=== PATIENT | male | born 1965 | race Caucasian/White ===

== ENCOUNTER 2021-01-16 13:51 | Outpatient (CLI) | payer OTHER | END 2021-01-16 13:52 | disposition home or self-care (01) | LOC: BICULT 13:51 | PROVIDERS: ATTEND Nurse Practitioner Family | DX: R10.32 Left lower quadrant pain (principal) | CPT/HCPCS: 76870; 93976 ==

== ENCOUNTER 2024-06-11 09:21 | Outpatient (CLI) | payer OTHER | END 2024-06-11 09:22 | disposition home or self-care (01) | LOC: BICRAD 09:21 | PROVIDERS: ATTEND Internal Medicine | DX: Z02.71 Encounter for disability determination (principal); M47.816 Spondylosis without myelopathy or radiculopathy, lumbar region | CPT/HCPCS: 72100 ==

== ENCOUNTER 2025-03-17 08:56 | Inpatient (IN) | payer OTHER ==
[2025-03-17] MEDS ORDERED: Cefepime 2 GM VIAL ONE (09:18)
[2025-03-17 09:27] LABS: #Basophils Less than 0.03 10x3/uL (0.0-0.2); #Eosinophils Less than 0.03 10x3/uL (0.0-0.7); #Monocytes 0.27 10x3/uL (0.11-0.59); #Neutrophils 3.57 10x3/uL (1.40-6.50); %Basophils 0.4 % (0.0-1.0); %Eosinophils 0.0 % (0.0-10.0); %Lymphocytes 15.0 % (21.0-51.0); %Monocytes 5.9 % (0.0-10.0); %Neutrophils 77.8 % (42.0-75.0); Hematocrit 29.9 % (42.0-52.0); Hemoglobin 9.9 g/dL (14.0-18.0); Mean Corpuscular Hemoglobin 37.6 pg (27.0-31.0); Mean Corpuscular Volume 113.7 fL (78.0-98.0); Platelet Count 81 10x3/uL (130-400); Red Blood Cell (RBC) Count 2.63 mill/uL (4.70-6.10); White Blood Cell (WBC) Count 4.59 10x3/uL (4.8-10.8)
[2025-03-17 09:35] LABS: INR-International Normal Ratio 1.2; PTT 30.9 sec (22.9-36.1); Prothrombin Time 15.4 sec (12.0-14.7)
[2025-03-17 09:43] LABS: Anion Gap 32 mmol/L (10-20); BUN (Urea Nitrogen) 33 mg/dL (8.4-25.7); Calc. Creatinine Clearance 0 mL/min (70-130); Carbon Dioxide 11 mmol/L (23-31); Chloride 103 mmol/L (98-107); Potassium 3.8 mmol/L (3.5-5.1); Sodium 142 mmol/L (136-145)
[2025-03-17 09:44] LABS: ALT (SGPT) 14 U/L (Less than 45); AST (SGOT) 52 U/L (11-34); Albumin 3.7 g/dL (3.1-4.5); Alkaline Phosphatase 56 U/L (40-110); Bilirubin, Total 1.8 mg/dL (0.3-1.2); Calcium 8.5 mg/dL (7.8-10.44); Globulin 4.2 g/dL (2.4-3.5); Glucose 92 mg/dL (80-115); Magnesium 1.4 mg/dL (1.6-2.6)
[2025-03-17 09:46] LABS: Troponin I 0.012 ng/mL (< 0.028)
[2025-03-17 09:48] LABS: Anisocytosis SLIGHT = 6-15 cells HPF (0-5); Macrocytosis MODERATE=16-30 cells HPF (0-5); Platelet Adequacy Comment Platelets Decreased; Poikilocytosis SLIGHT = 6-15 cells HPF (0-5)
[2025-03-17] MEDS ORDERED: Magnesium 2 GM/50 ML BAG (IN WATER) ONE (09:58)
[2025-03-17] MEDS ORDERED: Multivit, Therapeutic 1 TAB ONE (10:23)
[2025-03-17] MEDS ORDERED: Folic Acid 1 MG TAB ONE (10:23)
[2025-03-17 10:49] LABS: Acetaminophen Less than 10 mcg/mL (Less than 10); Salicylate Less than 8.0 mg/dL (Less than 8.0)
[2025-03-17] MEDS ORDERED: Iopamidol-370 76% 500 ML MDV (1 ML CHARGE) ONE (11:19)
[2025-03-17] MEDS ORDERED: Senokot S 8.6-50 MG TAB PO PRN (12:25)
[2025-03-17 12:39] LABS: Analyzer IN Cardio ER; Base Excess (BEa) -19.0 mEq/L (-2.0 to +3.0); Calcium, Ionized (arterial) 1.18 mmol/L (1.12-1.30); Hematocrit-ABG 29 % (42.0-52.0); Hemoglobin (Hb) 9.7 g/dL (14.0-18.0); O2 Tension (PaO2), arterial 78.2 mmHg (> 80.0); Potassium - ABG Lab 4.22 mmol/L (3.70-5.30)
[2025-03-17] MEDS ORDERED: Electrolyte Replacement Protocol 1 EACH FS SCH (12:45)
[2025-03-17 12:50] LABS: Troponin I 0.033 ng/mL (< 0.028)
[2025-03-17] MEDS: Etomidate 40 MG (20 mL) VIAL ONE (13:51)
[2025-03-17] MEDS ORDERED: Propofol BOLUS 1,000 MG/100 ML VIAL IV PRN (14:15)
[2025-03-17] MEDS ORDERED: Fentanyl BOLUS 100 ML IVPB PRN (14:15)
[2025-03-17 14:51] LABS: Troponin I 0.152 ng/mL (< 0.028)
[2025-03-17 15:05] LABS: Anion Gap 28 mmol/L (10-20); BUN (Urea Nitrogen) 30 mg/dL (8.4-25.7); Calc. Creatinine Clearance 0 mL/min (70-130); Calcium 7.8 mg/dL (7.8-10.44); Carbon Dioxide 9 mmol/L (23-31); Chloride 108 mmol/L (98-107); Glucose 92 mg/dL (80-115); Potassium 4.1 mmol/L (3.5-5.1); Sodium 141 mmol/L (136-145)
[2025-03-17 15:32] LABS: Base Excess (BEa) -17.6 mEq/L (-2.0 to +3.0); CO2 Tension 26.9 mmHg (35.0-45.0); Calcium, Ionized (arterial) 1.17 mmol/L (1.12-1.30); Hematocrit-ABG 27 % (42.0-52.0); Hemoglobin (Hb) 9.2 g/dL (14.0-18.0); O2 Tension (PaO2), arterial 89.8 mmHg (> 80.0); Potassium - ABG Lab 3.74 mmol/L (3.70-5.30)
[2025-03-17 15:38] LABS: ALV-art Gradient 161.775 mmHg (0-20); Actual Bicarbonate (HCO3a) 9.5 mEq/L (22-28); Puncture Site Right Radial artery; pH, Arterial 7.166 (7.35-7.45)
[2025-03-17] MEDS: Ventilator Sedation Protocol 1 EACH FS ONE (15:52)
[2025-03-17] MEDS: Potassium Chloride 20 MEQ in Premix 1 BAG IVPB SCH (15:59)
[2025-03-17] MEDS: Vancomycin 1.5 GM / NS 500ML VIAL-2-BAG IVPB SCH (17:13)
[2025-03-17] MEDS: Electrolyte Replacement Protocol 1 EACH FS ONE (17:29)
[2025-03-17 19:39] LABS: Anion Gap 27 mmol/L (10-20); BUN (Urea Nitrogen) 30 mg/dL (8.4-25.7); Calc. Creatinine Clearance 69 mL/min (70-130); Calcium 7.6 mg/dL (7.8-10.44); Carbon Dioxide 11 mmol/L (23-31); Chloride 108 mmol/L (98-107); Glucose 98 mg/dL (80-115); Potassium 4.2 mmol/L (3.5-5.1); Sodium 142 mmol/L (136-145)
[2025-03-17] MEDS: Famotidine/PF 20 mg/2ml Vial SLOW IVP SCH (20:31)
[2025-03-17 23:18] LABS: Bacteria/HPF None Seen HPF (None Seen); CAUTI Indications for Culture Dysuria,urgency,freq; Glucose, Urine (Dipstick) Normal (Negative); Leukocyte Negative Leu/uL (Negative); Protein, Urine (Dipstick) 50 mg/dL (Neg-Trace); RBC/HPF 0-3 HPF (0-3); Specific Gravity, Urine Greater than 1.050 (1.002-1.036); WBC/HPF 0-3 HPF (0-3)
[2025-03-17 23:19] LABS: Urine Culture Reflex No No
[2025-03-17] MEDS: Vancomycin 1 GM in Premix 1 BAG IVPB SCH (23:31)
[2025-03-18 03:44] LABS: Vancomycin, Random 88.7 ug/mL (See Comment)
[2025-03-18 03:49] LABS: ALT (SGPT) 8 U/L (Less than 45); AST (SGOT) 30 U/L (11-34); Albumin 2.5 g/dL (3.1-4.5); Alkaline Phosphatase 34 U/L (40-110); Anion Gap 27 mmol/L (10-20); BUN (Urea Nitrogen) 28 mg/dL (8.4-25.7); Bilirubin, Direct 0.9 mg/dL (0.1-0.3); Bilirubin, Total 1.4 mg/dL (0.3-1.2); Calc. Creatinine Clearance 62 mL/min (70-130); Calcium 7.0 mg/dL (7.8-10.44); Carbon Dioxide 17 mmol/L (23-31); Chloride 98 mmol/L (98-107); Glucose 207 mg/dL (80-115); Potassium 3.8 mmol/L (3.5-5.1); Sodium 138 mmol/L (136-145)
[2025-03-18 04:32] LABS: Hematocrit 22.9 % (42.0-52.0); Hemoglobin 7.6 g/dL (14.0-18.0); Mean Corpuscular Hemoglobin 38.8 pg (27.0-31.0); Mean Corpuscular Volume 116.8 fL (78.0-98.0); Platelet Count 59 10x3/uL (130-400); Red Blood Cell (RBC) Count 1.96 mill/uL (4.70-6.10); White Blood Cell (WBC) Count 1.77 10x3/uL (4.8-10.8)
[2025-03-18 05:04] LABS: Macrocytosis SLIGHT = 6-15 cells HPF (0-5); Platelet Adequacy Comment Platelets Decreased; Smudge Cells 7.4 %
[2025-03-18 05:08] LABS: Reflex for Review?? YES
[2025-03-18 06:34] LABS: Actual Bicarbonate (HCO3a) 17.0 mEq/L (22-28); Base Excess (BEa) -7.9 mEq/L (-2.0 to +3.0); CO2 Tension 32.3 mmHg (35.0-45.0); Calcium, Ionized (arterial) 1.08 mmol/L (1.12-1.30); Hematocrit-ABG 25 % (42.0-52.0); Hemoglobin (Hb) 8.5 g/dL (14.0-18.0); O2 Tension (PaO2), arterial 72.1 mmHg (> 80.0); Potassium - ABG Lab 3.91 mmol/L (3.70-5.30); pH, Arterial 7.340 (7.35-7.45)
[2025-03-18 06:36] LABS: ALV-art Gradient 172.725 mmHg (0-20); Puncture Site Right Brachial art
[2025-03-18] MEDS ORDERED: Enoxaparin 40 MG (0.4 mL) SYRINGE SC SCH (09:00)
[2025-03-18] MEDS: Sodium Phosphate 40 MMOL in Sodium Chloride 0.9% 250 ML 250 ML IVPB SCH (09:18)
[2025-03-18] MEDS: Folic Acid 1 MG TAB PO SCH (09:18)
[2025-03-18] MEDS: Multivit, Therapeutic 1 TAB PO SCH (09:18)
[2025-03-18 10:34] LABS: Vancomycin, Random 24.0 ug/mL (See Comment)
[2025-03-18 12:58] LABS: pH, Arterial 7.145 (7.35-7.45)
[2025-03-18 12:59] LABS: Actual Bicarbonate (HCO3a) 8.3 mEq/L (22-28); CO2 Tension 24.7 mmHg (35.0-45.0)
[2025-03-18] MEDS: Vancomycin HCl 1.25 GM in Sodium Chloride 0.9% 250 ML 250 ML IVPB SCH (20:33)
[2025-03-19 04:11] LABS: Hematocrit 23.5 % (42.0-52.0); Hemoglobin 8.0 g/dL (14.0-18.0); Mean Corpuscular Hemoglobin 37.9 pg (27.0-31.0); Mean Corpuscular Volume 111.4 fL (78.0-98.0); Platelet Count 53 10x3/uL (130-400); Red Blood Cell (RBC) Count 2.11 mill/uL (4.70-6.10); White Blood Cell (WBC) Count 2.99 10x3/uL (4.8-10.8)
[2025-03-19 04:23] LABS: Magnesium 1.6 mg/dL (1.6-2.6)
[2025-03-19 04:32] LABS: ALT (SGPT) 8 U/L (Less than 45); AST (SGOT) 23 U/L (11-34); Albumin 2.6 g/dL (3.1-4.5); Alkaline Phosphatase 35 U/L (40-110); Anion Gap 20 mmol/L (10-20); BUN (Urea Nitrogen) 30 mg/dL (8.4-25.7); Bilirubin, Direct 0.8 mg/dL (0.1-0.3); Bilirubin, Total 1.2 mg/dL (0.3-1.2); Calc. Creatinine Clearance 77 mL/min (70-130); Calcium 7.8 mg/dL (7.8-10.44); Carbon Dioxide 18 mmol/L (23-31); Chloride 105 mmol/L (98-107); Glucose 218 mg/dL (80-115); Potassium 3.4 mmol/L (3.5-5.1); Sodium 140 mmol/L (136-145)
[2025-03-19 04:40] LABS: Anisocytosis SLIGHT = 6-15 cells HPF (0-5); Macrocytosis SLIGHT = 6-15 cells HPF (0-5); Nucleated RBC (Manual Ct) 4 % (0); Platelet Adequacy Comment Platelets Decreased; Polychromasia SLIGHT = 2-3 cells HPF (0-2); Smudge Cells 0.9 %
[2025-03-19 04:41] LABS: Vancomycin, Random 34.6 ug/mL (See Comment)
[2025-03-19] MEDS: Magnesium 2 GM/50 ML(in water) 2 GM in Premix 1 BAG IVPB SCH (06:14)
[2025-03-19] MEDS: Potassium Chloride 20 MEQ in Premix 1 BAG IVPB SCH (06:15)
[2025-03-19] MEDS ORDERED: Glucagon 1 MG/ML KIT IM PRN (09:17)
[2025-03-19] MEDS ORDERED: Dextrose 50% Abboject 50 ML SYRINGE SLOW IVP PRN (09:17)
[2025-03-19 13:51] LABS: Hematocrit 22.3 % (42.0-52.0); Hemoglobin 7.3 g/dL (14.0-18.0)
[2025-03-20 04:10] LABS: #Basophils Less than 0.03 10x3/uL (0.0-0.2); #Eosinophils Less than 0.03 10x3/uL (0.0-0.7); #Monocytes 0.27 10x3/uL (0.11-0.59); #Neutrophils 3.04 10x3/uL (1.40-6.50); %Basophils 0.0 % (0.0-1.0); %Eosinophils 0.0 % (0.0-10.0); %Lymphocytes 7.3 % (21.0-51.0); %Monocytes 7.3 % (0.0-10.0); %Neutrophils 82.7 % (42.0-75.0); Hematocrit 26.0 % (42.0-52.0); Hemoglobin 8.6 g/dL (14.0-18.0); Mean Corpuscular Hemoglobin 37.4 pg (27.0-31.0); Mean Corpuscular Volume 113.0 fL (78.0-98.0); Platelet Count 65 10x3/uL (130-400); Red Blood Cell (RBC) Count 2.30 mill/uL (4.70-6.10); White Blood Cell (WBC) Count 3.68 10x3/uL (4.8-10.8)
[2025-03-20 04:14] LABS: ALT (SGPT) 8 U/L (Less than 45); AST (SGOT) 22 U/L (11-34); Albumin 2.5 g/dL (3.1-4.5); Alkaline Phosphatase 40 U/L (40-110); Anion Gap 16 mmol/L (10-20); BUN (Urea Nitrogen) 27 mg/dL (8.4-25.7); Bilirubin, Direct 0.6 mg/dL (0.1-0.3); Bilirubin, Total 1.0 mg/dL (0.3-1.2); Calc. Creatinine Clearance 89 mL/min (70-130); Calcium 8.2 mg/dL (7.8-10.44); Carbon Dioxide 21 mmol/L (23-31); Chloride 106 mmol/L (98-107); Glucose 136 mg/dL (80-115); Magnesium 2.3 mg/dL (1.6-2.6); Potassium 4.3 mmol/L (3.5-5.1); Sodium 139 mmol/L (136-145)
[2025-03-20] MEDS: Folic Acid 0.5 MG in Admixture Fee 1 EACH SC SCH (10:11)
[2025-03-21 04:05] LABS: Hematocrit 27.3 % (42.0-52.0); Hemoglobin 8.8 g/dL (14.0-18.0); Mean Corpuscular Hemoglobin 37.4 pg (27.0-31.0); Mean Corpuscular Volume 116.2 fL (78.0-98.0); Platelet Count 71 10x3/uL (130-400); Red Blood Cell (RBC) Count 2.35 mill/uL (4.70-6.10); White Blood Cell (WBC) Count 3.06 10x3/uL (4.8-10.8)
[2025-03-21 04:21] LABS: ALT (SGPT) 11 U/L (Less than 45); AST (SGOT) 49 U/L (11-34); Albumin 2.2 g/dL (3.1-4.5); Alkaline Phosphatase 42 U/L (40-110); Anion Gap 13 mmol/L (10-20); BUN (Urea Nitrogen) 20 mg/dL (8.4-25.7); Bilirubin, Direct 0.8 mg/dL (0.1-0.3); Bilirubin, Total 1.2 mg/dL (0.3-1.2); Calc. Creatinine Clearance 96 mL/min (70-130); Calcium 7.8 mg/dL (7.8-10.44); Carbon Dioxide 25 mmol/L (23-31); Chloride 107 mmol/L (98-107); Glucose 115 mg/dL (80-115); Magnesium 1.8 mg/dL (1.6-2.6); Potassium 3.5 mmol/L (3.5-5.1); Sodium 141 mmol/L (136-145)
[2025-03-21 04:30] LABS: Macrocytosis SLIGHT = 6-15 cells HPF (0-5); Nucleated RBC (Manual Ct) 1 % (0); Platelet Adequacy Comment Platelets Decreased; Polychromasia SLIGHT = 2-3 cells HPF (0-2)
[2025-03-21] MEDS: Thiamine 100 MG TAB PO SCH (08:11)
[2025-03-21] MEDS: Magnesium 2 GM/50 ML(in water) 2 GM in Premix 1 BAG IVPB SCH (08:12)
[2025-03-21] MEDS: Potassium Chloride 20 MEQ in Premix 1 BAG IVPB SCH (08:39)
[2025-03-21] MEDS: Multivits W-Minerals Liquid 15 ML UDCUP PER TUBE SCH (08:39)
[2025-03-21] MEDS ORDERED: PROPOFOL 40 ML ONE (12:18)
[2025-03-21] MEDS ORDERED: Rocuronium Bromide 10 MG/ML (10ML VIAL) ONE (13:00)
[2025-03-21] MEDS: Pantoprazole 40 MG VIAL IVP SCH (13:29)
[2025-03-21] MEDS: Multivitamins, Adult 10 ML, Folic Acid 1 MG, Thiamine HCl 100 MG in Dextrose 5 %-0.45 %... IV SCH (15:18)
[2025-03-21 19:15] LABS: Potassium 3.9 mmol/L (3.5-5.1)
[2025-03-22 04:35] LABS: ALT (SGPT) 7 U/L (Less than 45); AST (SGOT) 25 U/L (11-34); Albumin 2.0 g/dL (3.1-4.5); Alkaline Phosphatase 44 U/L (40-110); Bilirubin, Direct 0.6 mg/dL (0.1-0.3); Bilirubin, Total 0.9 mg/dL (0.3-1.2)
[2025-03-22 07:41] LABS: Actual Bicarbonate (HCO3a) 27.2 mEq/L (22-28); Base Excess (BEa) 4.1 mEq/L (-2.0 to +3.0); CO2 Tension 34.9 mmHg (35.0-45.0); Calcium, Ionized (arterial) 1.09 mmol/L (1.12-1.30); Hematocrit-ABG 28 % (42.0-52.0); Hemoglobin (Hb) 9.4 g/dL (14.0-18.0); O2 Tension (PaO2), arterial 82.7 mmHg (> 80.0); Potassium - ABG Lab 3.83 mmol/L (3.70-5.30); pH, Arterial 7.509 (7.35-7.45)
[2025-03-22 07:43] LABS: ALV-art Gradient 51.925 mmHg (0-20); Puncture Site Left Brachial artery
[2025-03-22 09:22] LABS: ALT (SGPT) 7 U/L (Less than 45); AST (SGOT) 30 U/L (11-34); Albumin 2.2 g/dL (3.1-4.5); Alkaline Phosphatase 49 U/L (40-110); Anion Gap 14 mmol/L (10-20); BUN (Urea Nitrogen) 11 mg/dL (8.4-25.7); Bilirubin, Total 1.2 mg/dL (0.3-1.2); Calc. Creatinine Clearance 109 mL/min (70-130); Calcium 7.9 mg/dL (7.8-10.44); Carbon Dioxide 24 mmol/L (23-31); Chloride 104 mmol/L (98-107); Globulin 3.7 g/dL (2.4-3.5); Glucose 98 mg/dL (80-115); Magnesium 1.6 mg/dL (1.6-2.6); Potassium 3.9 mmol/L (3.5-5.1); Sodium 138 mmol/L (136-145)
[2025-03-22] MEDS: Magnesium 2 GM/50 ML(in water) 2 GM in Premix 1 BAG IVPB SCH (09:39)
[2025-03-22 09:46] LABS: Hematocrit 26.8 % (42.0-52.0); Hemoglobin 8.9 g/dL (14.0-18.0); Mean Corpuscular Hemoglobin 38.2 pg (27.0-31.0); Mean Corpuscular Volume 115.0 fL (78.0-98.0); Platelet Count 65 10x3/uL (130-400); Red Blood Cell (RBC) Count 2.33 mill/uL (4.70-6.10); White Blood Cell (WBC) Count 4.16 10x3/uL (4.8-10.8)
[2025-03-22 10:11] LABS: Anisocytosis SLIGHT = 6-15 cells HPF (0-5); Macrocytosis SLIGHT = 6-15 cells HPF (0-5); Platelet Adequacy Comment Platelets Decreased; Polychromasia SLIGHT = 2-3 cells HPF (0-2); Smudge Cells 1.0 %; Toxic Granulation SLIGHT
[2025-03-22] MEDS: D5W-AA 4.25% with LYTES 1,000 ML IV SCH (17:49)
[2025-03-22] MEDS: Furosemide 20 MG (2 mL) VIAL SLOW IVP SCH (22:54)
[2025-03-22] MEDS: Glycopyrrolate 0.4 MG/ 2 ML VIAL SLOW IVP SCH (22:54)
[2025-03-22] MEDS: Scopolamine 1 mg/72 hour Patch TD SCH (23:20)
[2025-03-23 05:19] LABS: Hematocrit 20.3 % (42.0-52.0); Hemoglobin 6.9 g/dL (14.0-18.0); Mean Corpuscular Hemoglobin 37.7 pg (27.0-31.0); Mean Corpuscular Volume 110.9 fL (78.0-98.0); Platelet Count 69 10x3/uL (130-400); Red Blood Cell (RBC) Count 1.83 mill/uL (4.70-6.10); White Blood Cell (WBC) Count 3.72 10x3/uL (4.8-10.8)
[2025-03-23 05:24] LABS: ALT (SGPT) Less than 7 U/L (Less than 45); AST (SGOT) 37 U/L (11-34); Albumin 2.1 g/dL (3.1-4.5); Alkaline Phosphatase 39 U/L (40-110); Anion Gap 11 mmol/L (10-20); BUN (Urea Nitrogen) 14 mg/dL (8.4-25.7); Bilirubin, Total 0.8 mg/dL (0.3-1.2); Calc. Creatinine Clearance 0 mL/min (70-130); Calcium 7.7 mg/dL (7.8-10.44); Carbon Dioxide 27 mmol/L (23-31); Chloride 99 mmol/L (98-107); Globulin 3.2 g/dL (2.4-3.5); Glucose 133 mg/dL (80-115); Magnesium 1.6 mg/dL (1.6-2.6); Potassium 3.4 mmol/L (3.5-5.1); Sodium 134 mmol/L (136-145)
[2025-03-23] MEDS: Magnesium 2 GM/50 ML(in water) 2 GM in Premix 1 BAG IVPB SCH (06:33)
[2025-03-23 06:34] LABS: Anisocytosis SLIGHT = 6-15 cells HPF (0-5); Macrocytosis SLIGHT = 6-15 cells HPF (0-5); Platelet Adequacy Comment Platelets Decreased; Polychromasia SLIGHT = 2-3 cells HPF (0-2); Smudge Cells 6.9 %; Stomatocytes SLIGHT = 2-5 cells HPF (0-1)
[2025-03-23] MEDS: Potassium Chloride 20 MEQ in Premix 1 BAG IVPB SCH (10:06)
[2025-03-24] MEDS: Furosemide 20 MG (2 mL) VIAL SLOW IVP SCH (04:43)
[2025-03-24 05:08] LABS: Hematocrit 22.3 % (42.0-52.0); Hemoglobin 7.6 g/dL (14.0-18.0); Mean Corpuscular Hemoglobin 36.5 pg (27.0-31.0); Mean Corpuscular Volume 107.2 fL (78.0-98.0); Platelet Count 77 10x3/uL (130-400); Red Blood Cell (RBC) Count 2.08 mill/uL (4.70-6.10); White Blood Cell (WBC) Count 7.72 10x3/uL (4.8-10.8)
[2025-03-24 05:21] LABS: Anion Gap 12 mmol/L (10-20); BUN (Urea Nitrogen) 24 mg/dL (8.4-25.7); Calc. Creatinine Clearance 113 mL/min (70-130); Calcium 7.8 mg/dL (7.8-10.44); Carbon Dioxide 26 mmol/L (23-31); Chloride 101 mmol/L (98-107); Glucose 117 mg/dL (80-115); Potassium 4.2 mmol/L (3.5-5.1); Sodium 135 mmol/L (136-145)
[2025-03-24 05:43] LABS: Hypersegmented Neutrophil SLIGHT (None Seen); Macrocytosis SLIGHT = 6-15 cells HPF (0-5); Platelet Adequacy Comment Platelets Decreased; Polychromasia SLIGHT = 2-3 cells HPF (0-2); Smudge Cells 4.0 %; Toxic Granulation SLIGHT
[2025-03-25 12:51] LABS: Hematocrit 21.9 % (42.0-52.0); Hemoglobin 7.3 g/dL (14.0-18.0); Mean Corpuscular Hemoglobin 36.5 pg (27.0-31.0); Mean Corpuscular Volume 109.5 fL (78.0-98.0); Platelet Count 100 10x3/uL (130-400); Red Blood Cell (RBC) Count 2.00 mill/uL (4.70-6.10); White Blood Cell (WBC) Count 16.39 10x3/uL (4.8-10.8)
[2025-03-25 13:15] LABS: ALT (SGPT) Less than 7 U/L (Less than 45); AST (SGOT) 25 U/L (11-34); Albumin 1.5 g/dL (3.1-4.5); Alkaline Phosphatase 37 U/L (40-110); Anion Gap 18 mmol/L (10-20); BUN (Urea Nitrogen) 25 mg/dL (8.4-25.7); Bilirubin, Total 0.6 mg/dL (0.3-1.2); Calc. Creatinine Clearance 129 mL/min (70-130); Carbon Dioxide 18 mmol/L (23-31); Chloride 111 mmol/L (98-107); Globulin 2.9 g/dL (2.4-3.5); Glucose 70 mg/dL (80-115); Potassium 3.2 mmol/L (3.5-5.1); Sodium 144 mmol/L (136-145)
[2025-03-25 13:25] LABS: Anisocytosis SLIGHT = 6-15 cells HPF (0-5); Burr Cells SLIGHT = 2-5 cells HPF (0-1); Macrocytosis SLIGHT = 6-15 cells HPF (0-5); Platelet Adequacy Comment Platelets Decreased; Polychromasia SLIGHT = 2-3 cells HPF (0-2)
[2025-03-25 13:28] LABS: Calcium 6.2 mg/dL (7.8-10.44)
[2025-03-25] MEDS: Potassium Chloride 20 MEQ in Premix 1 BAG IVPB SCH (15:10)
[2025-03-26 05:07] LABS: Hematocrit 23.7 % (42.0-52.0); Hemoglobin 7.9 g/dL (14.0-18.0); Mean Corpuscular Hemoglobin 35.3 pg (27.0-31.0); Mean Corpuscular Volume 105.8 fL (78.0-98.0); Platelet Count 213 10x3/uL (130-400); Red Blood Cell (RBC) Count 2.24 mill/uL (4.70-6.10); White Blood Cell (WBC) Count 28.81 10x3/uL (4.8-10.8)
[2025-03-26 05:24] LABS: ALT (SGPT) 11 U/L (Less than 45); AST (SGOT) 44 U/L (11-34); Albumin 2.4 g/dL (3.1-4.5); Alkaline Phosphatase 71 U/L (40-110); Anion Gap 17 mmol/L (10-20); BUN (Urea Nitrogen) 35 mg/dL (8.4-25.7); Bilirubin, Total 1.2 mg/dL (0.3-1.2); Calc. Creatinine Clearance 99 mL/min (70-130); Calcium 8.5 mg/dL (7.8-10.44); Carbon Dioxide 21 mmol/L (23-31); Chloride 100 mmol/L (98-107); Globulin 4.0 g/dL (2.4-3.5); Glucose 93 mg/dL (80-115); Potassium 5.0 mmol/L (3.5-5.1); Sodium 133 mmol/L (136-145)
[2025-03-26 05:37] LABS: Macrocytosis SLIGHT = 6-15 cells HPF (0-5); Platelet Adequacy Comment Platelets Normal; Polychromasia MODERATE = 3-4 cells HPF (0-2); Toxic Granulation SLIGHT
[2025-03-27 03:49] LABS: #Basophils 0.05 10x3/uL (0.0-0.2); #Eosinophils Less than 0.03 10x3/uL (0.0-0.7); #Monocytes 1.13 10x3/uL (0.11-0.59); #Neutrophils 15.56 10x3/uL (1.40-6.50); %Basophils 0.3 % (0.0-1.0); %Eosinophils 0.1 % (0.0-10.0); %Lymphocytes 3.6 % (21.0-51.0); %Monocytes 6.4 % (0.0-10.0); %Neutrophils 88.7 % (42.0-75.0); Hematocrit 20.9 % (42.0-52.0); Hemoglobin 6.8 g/dL (14.0-18.0); Mean Corpuscular Hemoglobin 35.1 pg (27.0-31.0); Mean Corpuscular Volume 107.7 fL (78.0-98.0); Platelet Count 262 10x3/uL (130-400); Red Blood Cell (RBC) Count 1.94 mill/uL (4.70-6.10); White Blood Cell (WBC) Count 17.54 10x3/uL (4.8-10.8)
[2025-03-27 04:07] LABS: Anion Gap 14 mmol/L (10-20); BUN (Urea Nitrogen) 38 mg/dL (8.4-25.7); Calc. Creatinine Clearance 99 mL/min (70-130); Calcium 8.1 mg/dL (7.8-10.44); Carbon Dioxide 22 mmol/L (23-31); Chloride 101 mmol/L (98-107); Glucose 113 mg/dL (80-115); Potassium 4.5 mmol/L (3.5-5.1); Sodium 132 mmol/L (136-145)
[2025-03-28 05:46] LABS: #Basophils Less than 0.03 10x3/uL (0.0-0.2); #Eosinophils Less than 0.03 10x3/uL (0.0-0.7); #Monocytes 0.51 10x3/uL (0.11-0.59); #Neutrophils 12.61 10x3/uL (1.40-6.50); %Basophils 0.1 % (0.0-1.0); %Eosinophils 0.0 % (0.0-10.0); %Lymphocytes 2.1 % (21.0-51.0); %Monocytes 3.8 % (0.0-10.0); %Neutrophils 93.0 % (42.0-75.0); Hematocrit 26.2 % (42.0-52.0); Hemoglobin 8.6 g/dL (14.0-18.0); Mean Corpuscular Hemoglobin 34.4 pg (27.0-31.0); Mean Corpuscular Volume 104.8 fL (78.0-98.0); Platelet Count 339 10x3/uL (130-400); Red Blood Cell (RBC) Count 2.50 mill/uL (4.70-6.10); White Blood Cell (WBC) Count 13.56 10x3/uL (4.8-10.8)
[2025-03-28 06:02] LABS: Anion Gap 16 mmol/L (10-20); BUN (Urea Nitrogen) 39 mg/dL (8.4-25.7); Calc. Creatinine Clearance 110 mL/min (70-130); Calcium 8.7 mg/dL (7.8-10.44); Carbon Dioxide 19 mmol/L (23-31); Chloride 102 mmol/L (98-107); Glucose 155 mg/dL (80-115); Potassium 5.1 mmol/L (3.5-5.1); Sodium 132 mmol/L (136-145)
[2025-03-28 10:18] LABS: Actual Bicarbonate (HCO3v) 21.4 mEq/L (22-28); Base Excess -2.7 mEq/L (-2.0 to +3.0); Calcium, Ionized (venous) 1.11 mmol/L (1.16-1.32); Chloride (VBG) 102 mmol/L (98-106); Hematocrit-VBG 30 % (42.0-52.0); Hemoglobin (Hb) 10.2 g/dL (13.1-17.2); Potassium (VBG) 4.64 mmol/L (3.70-5.30); Sodium 132 mmol/L (133-146)
[2025-03-29 06:20] LABS: #Basophils Less than 0.03 10x3/uL (0.0-0.2); #Eosinophils Less than 0.03 10x3/uL (0.0-0.7); #Monocytes 0.52 10x3/uL (0.11-0.59); #Neutrophils 9.31 10x3/uL (1.40-6.50); %Basophils 0.1 % (0.0-1.0); %Eosinophils 0.0 % (0.0-10.0); %Lymphocytes 3.2 % (21.0-51.0); %Monocytes 5.1 % (0.0-10.0); %Neutrophils 91.0 % (42.0-75.0); Hematocrit 27.4 % (42.0-52.0); Hemoglobin 8.7 g/dL (14.0-18.0); Mean Corpuscular Hemoglobin 33.6 pg (27.0-31.0); Mean Corpuscular Volume 105.8 fL (78.0-98.0); Platelet Count 408 10x3/uL (130-400); Red Blood Cell (RBC) Count 2.59 mill/uL (4.70-6.10); White Blood Cell (WBC) Count 10.23 10x3/uL (4.8-10.8)
[2025-03-29 06:36] LABS: Anion Gap 18 mmol/L (10-20); BUN (Urea Nitrogen) 42 mg/dL (8.4-25.7); Calc. Creatinine Clearance 123 mL/min (70-130); Calcium 8.6 mg/dL (7.8-10.44); Carbon Dioxide 18 mmol/L (23-31); Chloride 104 mmol/L (98-107); Glucose 163 mg/dL (80-115); Potassium 4.7 mmol/L (3.5-5.1); Sodium 135 mmol/L (136-145)
[2025-03-30 05:42] LABS: #Basophils Less than 0.03 10x3/uL (0.0-0.2); #Eosinophils Less than 0.03 10x3/uL (0.0-0.7); #Monocytes 0.35 10x3/uL (0.11-0.59); #Neutrophils 7.85 10x3/uL (1.40-6.50); %Basophils 0.0 % (0.0-1.0); %Eosinophils 0.0 % (0.0-10.0); %Lymphocytes 3.5 % (21.0-51.0); %Monocytes 4.1 % (0.0-10.0); %Neutrophils 92.0 % (42.0-75.0); Hematocrit 27.3 % (42.0-52.0); Hemoglobin 8.5 g/dL (14.0-18.0); Mean Corpuscular Hemoglobin 33.3 pg (27.0-31.0); Mean Corpuscular Volume 107.1 fL (78.0-98.0); Platelet Count 440 10x3/uL (130-400); Red Blood Cell (RBC) Count 2.55 mill/uL (4.70-6.10); White Blood Cell (WBC) Count 8.53 10x3/uL (4.8-10.8)
[2025-03-30 05:59] LABS: Anion Gap 14 mmol/L (10-20); BUN (Urea Nitrogen) 42 mg/dL (8.4-25.7); Calc. Creatinine Clearance 112 mL/min (70-130); Calcium 8.4 mg/dL (7.8-10.44); Carbon Dioxide 20 mmol/L (23-31); Chloride 104 mmol/L (98-107); Glucose 177 mg/dL (80-115); Potassium 5.5 mmol/L (3.5-5.1); Sodium 132 mmol/L (136-145)
[2025-03-30 10:25] LABS: Anion Gap 15 mmol/L (10-20); BUN (Urea Nitrogen) 42 mg/dL (8.4-25.7); Calc. Creatinine Clearance 117 mL/min (70-130); Calcium 8.6 mg/dL (7.8-10.44); Carbon Dioxide 18 mmol/L (23-31); Chloride 104 mmol/L (98-107); Glucose 148 mg/dL (80-115); Potassium 4.9 mmol/L (3.5-5.1); Sodium 132 mmol/L (136-145)
[2025-03-31] MEDS: hydrALAZINE 20 MG/ML VIAL SLOW IVP PRN (12:01)
[2025-04-01 06:18] LABS: #Basophils Less than 0.03 10x3/uL (0.0-0.2); #Eosinophils Less than 0.03 10x3/uL (0.0-0.7); #Monocytes 0.46 10x3/uL (0.11-0.59); #Neutrophils 9.80 10x3/uL (1.40-6.50); %Basophils 0.0 % (0.0-1.0); %Eosinophils 0.0 % (0.0-10.0); %Lymphocytes 2.1 % (21.0-51.0); %Monocytes 4.4 % (0.0-10.0); %Neutrophils 92.8 % (42.0-75.0); Hematocrit 30.6 % (42.0-52.0); Hemoglobin 9.6 g/dL (14.0-18.0); Mean Corpuscular Hemoglobin 33.8 pg (27.0-31.0); Mean Corpuscular Volume 107.7 fL (78.0-98.0); Platelet Count 454 10x3/uL (130-400); Red Blood Cell (RBC) Count 2.84 mill/uL (4.70-6.10); White Blood Cell (WBC) Count 10.55 10x3/uL (4.8-10.8)
[2025-04-01 06:39] LABS: Albumin 2.2 g/dL (3.1-4.5); Anion Gap 12 mmol/L (10-20); BUN (Urea Nitrogen) 39 mg/dL (8.4-25.7); BUN/Creatinine Ratio 70.91; Calc. Creatinine Clearance 137 mL/min (70-130); Calcium 8.2 mg/dL (7.8-10.44); Carbon Dioxide 23 mmol/L (23-31); Chloride 103 mmol/L (98-107); Glucose 124 mg/dL (80-115); Potassium 5.0 mmol/L (3.5-5.1); Sodium 133 mmol/L (136-145)
[2025-04-01] MEDS: Etomidate 40 MG (20 mL) VIAL IVP SCH (11:18)
[2025-04-01] MEDS ORDERED: Etomidate 40 MG (20 mL) VIAL ONE (11:18)
[2025-04-01] MEDS ORDERED: SUCCINYLCHOLINE/SOD CL,ISO/PF 200 MG/10 ML SYRINGE FS ONE (11:18)
[2025-04-01] MEDS: SUCCINYLCHOLINE/SOD CL,ISO/PF 200 MG/10 ML SYRINGE FS SCH (11:20)
[2025-04-01] MEDS ORDERED: Ventilator Sedation Protocol 1 EACH FS SCH (12:15)
[2025-04-01] MEDS ORDERED: Fentanyl BOLUS 100 ML IVPB PRN (12:15)
[2025-04-01] MEDS ORDERED: Propofol BOLUS 1,000 MG/100 ML VIAL IV PRN (12:15)
[2025-04-01 13:43] LABS: Actual Bicarbonate (HCO3a) 18.6 mEq/L (22-28); Base Excess (BEa) -4.1 mEq/L (-2.0 to +3.0); CO2 Tension 26.5 mmHg (35.0-45.0); Calcium, Ionized (arterial) 1.20 mmol/L (1.12-1.30); Hematocrit-ABG 31 % (42.0-52.0); Hemoglobin (Hb) 10.5 g/dL (14.0-18.0); O2 Tension (PaO2), arterial 293.4 mmHg (> 80.0); Potassium - ABG Lab 4.76 mmol/L (3.70-5.30); pH, Arterial 7.464 (7.35-7.45)
[2025-04-01 13:44] LABS: ALV-art Gradient 386.475 mmHg (0-20); Puncture Site Left Radial artery
[2025-04-01] MEDS: Enoxaparin 40 MG (0.4 mL) SYRINGE SC SCH (14:40)
[2025-04-01 23:15] LABS: Actual Bicarbonate (HCO3a) 22.7 mEq/L (22-28); Base Excess (BEa) -1.8 mEq/L (-2.0 to +3.0); CO2 Tension 37.5 mmHg (35.0-45.0); Calcium, Ionized (arterial) 1.22 mmol/L (1.12-1.30); Hematocrit-ABG 33 % (42.0-52.0); Hemoglobin (Hb) 11.1 g/dL (14.0-18.0); Potassium - ABG Lab 4.91 mmol/L (3.70-5.30); pH, Arterial 7.399 (7.35-7.45)
[2025-04-01 23:16] LABS: O2 Tension (PaO2), arterial 49.9 mmHg (> 80.0); Puncture Site Left Brachial artery
[2025-04-01 23:17] LABS: ALV-art Gradient 331.025 mmHg (0-20)
[2025-04-02 04:30] LABS: Actual Bicarbonate (HCO3a) 20.5 mEq/L (22-28); Base Excess (BEa) -2.6 mEq/L (-2.0 to +3.0); CO2 Tension 29.9 mmHg (35.0-45.0); Calcium, Ionized (arterial) 1.22 mmol/L (1.12-1.30); Hematocrit-ABG 31 % (42.0-52.0); Hemoglobin (Hb) 10.5 g/dL (14.0-18.0); O2 Tension (PaO2), arterial 204.3 mmHg (> 80.0); Potassium - ABG Lab 4.80 mmol/L (3.70-5.30); pH, Arterial 7.454 (7.35-7.45)
[2025-04-02 04:31] LABS: ALV-art Gradient 400.025 mmHg (0-20); Puncture Site Left Brachial artery
[2025-04-02 04:31] LABS: #Basophils Less than 0.03 10x3/uL (0.0-0.2); #Eosinophils Less than 0.03 10x3/uL (0.0-0.7); #Monocytes 0.84 10x3/uL (0.11-0.59); #Neutrophils 15.05 10x3/uL (1.40-6.50); %Basophils 0.1 % (0.0-1.0); %Eosinophils 0.0 % (0.0-10.0); %Lymphocytes 2.0 % (21.0-51.0); %Monocytes 5.1 % (0.0-10.0); %Neutrophils 92.2 % (42.0-75.0); Hematocrit 32.0 % (42.0-52.0); Hemoglobin 10.5 g/dL (14.0-18.0); Mean Corpuscular Hemoglobin 34.1 pg (27.0-31.0); Mean Corpuscular Volume 103.9 fL (78.0-98.0); Platelet Count 417 10x3/uL (130-400); Red Blood Cell (RBC) Count 3.08 mill/uL (4.70-6.10); White Blood Cell (WBC) Count 16.33 10x3/uL (4.8-10.8)
[2025-04-02 04:53] LABS: Anion Gap 12 mmol/L (10-20); BUN (Urea Nitrogen) 36 mg/dL (8.4-25.7); Calc. Creatinine Clearance 143 mL/min (70-130); Carbon Dioxide 20 mmol/L (23-31); Chloride 105 mmol/L (98-107); Potassium 5.2 mmol/L (3.5-5.1); Sodium 132 mmol/L (136-145)
[2025-04-02 04:54] LABS: Calcium 8.3 mg/dL (7.8-10.44); Glucose 148 mg/dL (80-115); Magnesium 2.0 mg/dL (1.6-2.6)
[2025-04-02] MEDS: Enoxaparin 40 MG (0.4 mL) SYRINGE SC SCH (08:06)
[2025-04-02] MEDS: Magnesium 2 GM/50 ML(in water) 2 GM in Premix 1 BAG IVPB SCH (08:06)
[2025-04-02] MEDS ORDERED: Iopamidol-370 76% 500 ML MDV (1 ML CHARGE) ONE (10:40)
[2025-04-02] MEDS ORDERED: fentaNYL PF 100 MCG/2 ML SYRINGE ONE (12:01)
[2025-04-02] MEDS ORDERED: Rocuronium Bromide 10 MG/ML (10ML VIAL) ONE ×2 (12:01)
[2025-04-02] MEDS ORDERED: Lidocaine 1% (PF) 30 ML VIAL ONE (13:12)
[2025-04-02] MEDS ORDERED: PHENYLEPHRINE-NS 100 MCG/ML 10 ML SYRINGE ONE ×2 (13:17→13:18)
[2025-04-02] MEDS: Furosemide 40 MG (4 mL) VIAL SLOW IVP SCH (15:10)
[2025-04-03 06:37] LABS: #Basophils Less than 0.03 10x3/uL (0.0-0.2); #Eosinophils Less than 0.03 10x3/uL (0.0-0.7); #Monocytes 0.87 10x3/uL (0.11-0.59); #Neutrophils 15.97 10x3/uL (1.40-6.50); %Basophils 0.1 % (0.0-1.0); %Eosinophils 0.0 % (0.0-10.0); %Lymphocytes 1.3 % (21.0-51.0); %Monocytes 5.1 % (0.0-10.0); %Neutrophils 92.9 % (42.0-75.0); Hematocrit 32.6 % (42.0-52.0); Hemoglobin 10.8 g/dL (14.0-18.0); Mean Corpuscular Hemoglobin 33.6 pg (27.0-31.0); Mean Corpuscular Volume 101.6 fL (78.0-98.0); Platelet Count 403 10x3/uL (130-400); Red Blood Cell (RBC) Count 3.21 mill/uL (4.70-6.10); White Blood Cell (WBC) Count 17.19 10x3/uL (4.8-10.8)
[2025-04-03 06:38] LABS: Anion Gap 12 mmol/L (10-20); BUN (Urea Nitrogen) 32 mg/dL (8.4-25.7); Calc. Creatinine Clearance 125 mL/min (70-130); Calcium 8.2 mg/dL (7.8-10.44); Carbon Dioxide 23 mmol/L (23-31); Chloride 100 mmol/L (98-107); Glucose 121 mg/dL (80-115); Potassium 5.0 mmol/L (3.5-5.1); Sodium 130 mmol/L (136-145)
[2025-04-03] MEDS ORDERED: Oxymetazoline HCl 0.05% (30 ML BOT) NS PRN (12:00)
[2025-04-03] MEDS ORDERED: Oxymetazoline HCl 0.05% (30 ML BOT) NS SCH (21:00)
[2025-04-03] MEDS: NOREPINEPHRINE 8 MG/250 ML-D5W 250 ML IVPB SCH (23:25)
[2025-04-04] MEDS ORDERED: Etomidate 40 MG (20 mL) VIAL ONE (00:19)
[2025-04-04] MEDS ORDERED: Rocuronium Bromide 10 MG/ML (10ML VIAL) ONE (00:19)
[2025-04-04] MEDS: Ketamine In 0.9 % NaCl 50 MG/5 ML SYRINGE SLOW IVP SCH (00:38)
[2025-04-04] MEDS ORDERED: Fentanyl CADD 100 ML IV SCH (02:15)
[2025-04-04] MEDS: Rocuronium Bromide 10 MG/ML (10ML VIAL) IVPB SCH (02:24)
[2025-04-04] MEDS: Etomidate 40 MG (20 mL) VIAL IVP SCH (02:24)
[2025-04-04] MEDS ORDERED: Fentanyl BOLUS 100 ML IVPB PRN (02:30)
[2025-04-04] MEDS ORDERED: Propofol BOLUS 1,000 MG/100 ML VIAL IV PRN (02:30)
[2025-04-04] MEDS ORDERED: DISCONTINUE PREVIOUS NARCOTIC PAIN MEDICATIONS AND BENZODIAZEPINES FS SCH (02:30)
[2025-04-04] MEDS: EPINEPHrine 1 MG/10 ML Abboject SYRINGE ONE (04:10)
[2025-04-04 05:19] LABS: Anion Gap 16 mmol/L (10-20); BUN (Urea Nitrogen) 38 mg/dL (8.4-25.7); Calc. Creatinine Clearance 104 mL/min (70-130); Calcium 7.8 mg/dL (7.8-10.44); Carbon Dioxide 18 mmol/L (23-31); Chloride 101 mmol/L (98-107); Glucose 167 mg/dL (80-115); Potassium 5.7 mmol/L (3.5-5.1); Sodium 129 mmol/L (136-145)
[2025-04-04] MEDS: NOREPINEPHRINE 8 MG/250 ML-D5W 250 ML ONE (05:53)
[2025-04-04 07:54] LABS: Hematocrit 38.6 % (42.0-52.0); Hemoglobin 12.5 g/dL (14.0-18.0); Mean Corpuscular Hemoglobin 33.4 pg (27.0-31.0); Mean Corpuscular Volume 103.2 fL (78.0-98.0); Platelet Count 276 10x3/uL (130-400); Red Blood Cell (RBC) Count 3.74 mill/uL (4.70-6.10); White Blood Cell (WBC) Count 37.61 10x3/uL (4.8-10.8)
[2025-04-04 09:42] LABS: Anisocytosis SLIGHT = 6-15 cells HPF (0-5); Burr Cells SLIGHT = 2-5 cells HPF (0-1); Macrocytosis SLIGHT = 6-15 cells HPF (0-5); Ovalocytes SLIGHT = 2-5 cells HPF (0-1); Platelet Adequacy Comment Platelets Normal; Polychromasia SLIGHT = 2-3 cells HPF (0-2); Smudge Cells 4.0 %; Toxic Granulation SLIGHT
[2025-04-04 10:19] LABS: Hematocrit 36.7 % (42.0-52.0); Hemoglobin 11.9 g/dL (14.0-18.0); Mean Corpuscular Hemoglobin 33.8 pg (27.0-31.0); Mean Corpuscular Volume 104.3 fL (78.0-98.0); Platelet Count 247 10x3/uL (130-400); Red Blood Cell (RBC) Count 3.52 mill/uL (4.70-6.10); White Blood Cell (WBC) Count 27.23 10x3/uL (4.8-10.8)
[2025-04-04 10:29] LABS: Anion Gap 13 mmol/L (10-20); BUN (Urea Nitrogen) 39 mg/dL (8.4-25.7); Calc. Creatinine Clearance 90 mL/min (70-130); Calcium 7.9 mg/dL (7.8-10.44); Carbon Dioxide 23 mmol/L (23-31); Chloride 100 mmol/L (98-107); Glucose 85 mg/dL (80-115); Potassium 5.1 mmol/L (3.5-5.1); Sodium 131 mmol/L (136-145)
[2025-04-04 11:25] LABS: Anisocytosis SLIGHT = 6-15 cells HPF (0-5); Burr Cells MODERATE= 6-15 cells HPF (0-1); Giant Platelets 1.0 % (0-5); Hypersegmented Neutrophil SLIGHT (None Seen); Macrocytosis SLIGHT = 6-15 cells HPF (0-5); Platelet Adequacy Comment Platelets Normal; Polychromasia SLIGHT = 2-3 cells HPF (0-2); Schistocytes SLIGHT = 2-5 cells HPF (0-1); Smudge Cells 4.9 %
[2025-04-05 05:32] LABS: Anion Gap 13 mmol/L (10-20); BUN (Urea Nitrogen) 33 mg/dL (8.4-25.7); Calc. Creatinine Clearance 107 mL/min (70-130); Calcium 7.9 mg/dL (7.8-10.44); Carbon Dioxide 21 mmol/L (23-31); Chloride 102 mmol/L (98-107); Glucose 100 mg/dL (80-115); Magnesium 1.7 mg/dL (1.6-2.6); Potassium 4.4 mmol/L (3.5-5.1); Sodium 132 mmol/L (136-145)
[2025-04-05 07:40] LABS: #Basophils Less than 0.03 10x3/uL (0.0-0.2); #Eosinophils 0.03 10x3/uL (0.0-0.7); #Monocytes 1.27 10x3/uL (0.11-0.59); #Neutrophils 18.97 10x3/uL (1.40-6.50); %Basophils 0.1 % (0.0-1.0); %Eosinophils 0.1 % (0.0-10.0); %Lymphocytes 3.8 % (21.0-51.0); %Monocytes 6.0 % (0.0-10.0); %Neutrophils 89.1 % (42.0-75.0); Hematocrit 31.2 % (42.0-52.0); Hemoglobin 10.2 g/dL (14.0-18.0); Mean Corpuscular Hemoglobin 33.7 pg (27.0-31.0); Mean Corpuscular Volume 103.0 fL (78.0-98.0); Platelet Count 133 10x3/uL (130-400); Red Blood Cell (RBC) Count 3.03 mill/uL (4.70-6.10); White Blood Cell (WBC) Count 21.28 10x3/uL (4.8-10.8)
[2025-04-05 09:17] LABS: Burr Cells MODERATE= 6-15 cells HPF (0-1); Giant Platelets 1.0 % (0-5); Macrocytosis SLIGHT = 6-15 cells HPF (0-5); Platelet Adequacy Comment Platelets Normal; Polychromasia SLIGHT = 2-3 cells HPF (0-2); Schistocytes SLIGHT = 2-5 cells HPF (0-1); Smudge Cells 14.4 %
[2025-04-05] MEDS: Magnesium 2 GM/50 ML(in water) 2 GM in Premix 1 BAG IVPB SCH (09:32)
[2025-04-06 05:06] LABS: Anion Gap 14 mmol/L (10-20); BUN (Urea Nitrogen) 23 mg/dL (8.4-25.7); Calc. Creatinine Clearance 119 mL/min (70-130); Calcium 7.7 mg/dL (7.8-10.44); Carbon Dioxide 22 mmol/L (23-31); Chloride 102 mmol/L (98-107); Glucose 111 mg/dL (80-115); Potassium 3.8 mmol/L (3.5-5.1); Sodium 134 mmol/L (136-145)
[2025-04-06 06:52] LABS: Anisocytosis MODERATE=16-30 cells HPF (0-5); Burr Cells SLIGHT = 2-5 cells HPF (0-1); Macrocytosis SLIGHT = 6-15 cells HPF (0-5); Nucleated RBC (Manual Ct) 1 % (0); Platelet Adequacy Comment Platelets Decreased; Smudge Cells 8.0 %
[2025-04-06 06:57] LABS: Hematocrit 31.7 % (42.0-52.0); Hemoglobin 10.4 g/dL (14.0-18.0); Mean Corpuscular Hemoglobin 33.7 pg (27.0-31.0); Mean Corpuscular Volume 102.6 fL (78.0-98.0); Platelet Count 92 10x3/uL (130-400); Red Blood Cell (RBC) Count 3.09 mill/uL (4.70-6.10); White Blood Cell (WBC) Count 19.51 10x3/uL (4.8-10.8)
[2025-04-07 05:55] LABS: #Basophils Less than 0.03 10x3/uL (0.0-0.2); #Eosinophils 0.24 10x3/uL (0.0-0.7); #Monocytes 1.34 10x3/uL (0.11-0.59); #Neutrophils 11.60 10x3/uL (1.40-6.50); %Basophils 0.1 % (0.0-1.0); %Eosinophils 1.7 % (0.0-10.0); %Lymphocytes 4.7 % (21.0-51.0); %Monocytes 9.6 % (0.0-10.0); %Neutrophils 83.3 % (42.0-75.0); Hematocrit 30.4 % (42.0-52.0); Hemoglobin 9.8 g/dL (14.0-18.0); Mean Corpuscular Hemoglobin 33.0 pg (27.0-31.0); Mean Corpuscular Volume 102.4 fL (78.0-98.0); Platelet Count 89 10x3/uL (130-400); Red Blood Cell (RBC) Count 2.97 mill/uL (4.70-6.10); White Blood Cell (WBC) Count 13.93 10x3/uL (4.8-10.8)
[2025-04-07 06:40] LABS: Anion Gap 10 mmol/L (10-20); BUN (Urea Nitrogen) 28 mg/dL (8.4-25.7); Calc. Creatinine Clearance 128 mL/min (70-130); Calcium 7.7 mg/dL (7.8-10.44); Carbon Dioxide 24 mmol/L (23-31); Chloride 104 mmol/L (98-107); Glucose 112 mg/dL (80-115); Potassium 3.8 mmol/L (3.5-5.1); Sodium 134 mmol/L (136-145)
[2025-04-07] MEDS: Acetaminophen 325 MG TAB PO PRN (13:15)
[2025-04-07] MEDS: Lactulose 20 GM (30 mL) UDCUP PO PRN (13:15)
[2025-04-08 04:57] LABS: #Basophils Less than 0.03 10x3/uL (0.0-0.2); #Eosinophils 0.21 10x3/uL (0.0-0.7); #Monocytes 1.50 10x3/uL (0.11-0.59); #Neutrophils 16.57 10x3/uL (1.40-6.50); %Basophils 0.1 % (0.0-1.0); %Eosinophils 1.1 % (0.0-10.0); %Lymphocytes 3.0 % (21.0-51.0); %Monocytes 7.9 % (0.0-10.0); %Neutrophils 87.3 % (42.0-75.0); Hematocrit 32.7 % (42.0-52.0); Hemoglobin 10.7 g/dL (14.0-18.0); Mean Corpuscular Hemoglobin 32.5 pg (27.0-31.0); Mean Corpuscular Volume 99.4 fL (78.0-98.0); Platelet Count 133 10x3/uL (130-400); Red Blood Cell (RBC) Count 3.29 mill/uL (4.70-6.10); White Blood Cell (WBC) Count 18.97 10x3/uL (4.8-10.8)
[2025-04-08 05:12] LABS: Anion Gap 15 mmol/L (10-20); BUN (Urea Nitrogen) 25 mg/dL (8.4-25.7); Calc. Creatinine Clearance 133 mL/min (70-130); Calcium 7.9 mg/dL (7.8-10.44); Carbon Dioxide 22 mmol/L (23-31); Chloride 102 mmol/L (98-107); Glucose 117 mg/dL (80-115); Potassium 3.8 mmol/L (3.5-5.1); Sodium 135 mmol/L (136-145)
[2025-04-08 07:20] LABS: Magnesium 1.5 mg/dL (1.6-2.6)
[2025-04-08] MEDS: Magnesium 2 GM/50 ML(in water) 2 GM in Premix 1 BAG IVPB SCH (07:50)
[2025-04-08] MEDS: Glycopyrrolate 0.4 MG/ 2 ML VIAL SLOW IVP SCH (12:16)
[2025-04-08] MEDS: Senokot S 8.6-50 MG TAB PO SCH (20:18)
[2025-04-09 06:09] LABS: #Basophils Less than 0.03 10x3/uL (0.0-0.2); #Eosinophils 0.24 10x3/uL (0.0-0.7); #Monocytes 1.18 10x3/uL (0.11-0.59); #Neutrophils 12.76 10x3/uL (1.40-6.50); %Basophils 0.1 % (0.0-1.0); %Eosinophils 1.6 % (0.0-10.0); %Lymphocytes 4.6 % (21.0-51.0); %Monocytes 7.9 % (0.0-10.0); %Neutrophils 85.5 % (42.0-75.0); Hematocrit 29.5 % (42.0-52.0); Hemoglobin 9.6 g/dL (14.0-18.0); Mean Corpuscular Hemoglobin 32.9 pg (27.0-31.0); Mean Corpuscular Volume 101.0 fL (78.0-98.0); Platelet Count 156 10x3/uL (130-400); Red Blood Cell (RBC) Count 2.92 mill/uL (4.70-6.10); White Blood Cell (WBC) Count 14.93 10x3/uL (4.8-10.8)
[2025-04-09 06:30] LABS: Anion Gap 12 mmol/L (10-20); BUN (Urea Nitrogen) 28 mg/dL (8.4-25.7); Calc. Creatinine Clearance 125 mL/min (70-130); Calcium 7.8 mg/dL (7.8-10.44); Carbon Dioxide 23 mmol/L (23-31); Chloride 102 mmol/L (98-107); Glucose 121 mg/dL (80-115); Magnesium 1.5 mg/dL (1.6-2.6); Potassium 3.4 mmol/L (3.5-5.1); Sodium 134 mmol/L (136-145)
[2025-04-09] MEDS: Potassium Bicarbonate/Cit Ac 20 MEQ TAB PER TUBE SCH (08:17)
[2025-04-09] MEDS: Magnesium 2 GM/50 ML(in water) 2 GM in Premix 1 BAG IVPB SCH (08:18)
[2025-04-09] MEDS ORDERED: Iopamidol-370 76% 500 ML MDV (1 ML CHARGE) ONE (10:09)
[2025-04-10 04:55] LABS: Hematocrit 31.6 % (42.0-52.0); Hemoglobin 9.6 g/dL (14.0-18.0); Mean Corpuscular Hemoglobin 32.3 pg (27.0-31.0); Mean Corpuscular Volume 106.4 fL (78.0-98.0); Platelet Count 146 10x3/uL (130-400); Red Blood Cell (RBC) Count 2.97 mill/uL (4.70-6.10); White Blood Cell (WBC) Count 12.93 10x3/uL (4.8-10.8)
[2025-04-10 06:00] LABS: Anion Gap 16 mmol/L (10-20); BUN (Urea Nitrogen) 27 mg/dL (8.4-25.7); Calc. Creatinine Clearance 132 mL/min (70-130); Calcium 7.7 mg/dL (7.8-10.44); Carbon Dioxide 21 mmol/L (23-31); Chloride 101 mmol/L (98-107); Glucose 110 mg/dL (80-115); Potassium 4.1 mmol/L (3.5-5.1); Sodium 134 mmol/L (136-145)
[2025-04-10 06:50] LABS: Anisocytosis SLIGHT = 6-15 cells HPF (0-5); Burr Cells SLIGHT = 2-5 cells HPF (0-1); Macrocytosis SLIGHT = 6-15 cells HPF (0-5); Platelet Adequacy Comment Platelets Normal; Polychromasia SLIGHT = 2-3 cells HPF (0-2)
[2025-04-10] MEDS: Metoclopramide HCl 10 MG (2 mL) VIAL IVP SCH (08:24)
[2025-04-10] MEDS: Albumin 25% 25 GM (100 mL) BOT IVPB SCH (17:40)
[2025-04-11 06:03] LABS: Hematocrit 28.5 % (42.0-52.0); Hemoglobin 8.7 g/dL (14.0-18.0); Mean Corpuscular Hemoglobin 32.1 pg (27.0-31.0); Mean Corpuscular Volume 105.2 fL (78.0-98.0); Platelet Count 116 10x3/uL (130-400); Red Blood Cell (RBC) Count 2.71 mill/uL (4.70-6.10); White Blood Cell (WBC) Count 12.87 10x3/uL (4.8-10.8)
[2025-04-11 06:17] LABS: Anion Gap 14 mmol/L (10-20); BUN (Urea Nitrogen) 28 mg/dL (8.4-25.7); Calc. Creatinine Clearance 119 mL/min (70-130); Calcium 7.1 mg/dL (7.8-10.44); Carbon Dioxide 21 mmol/L (23-31); Chloride 106 mmol/L (98-107); Glucose 94 mg/dL (80-115); Potassium 3.6 mmol/L (3.5-5.1); Sodium 137 mmol/L (136-145)
[2025-04-11 06:31] LABS: Anisocytosis SLIGHT = 6-15 cells HPF (0-5); Burr Cells SLIGHT = 2-5 cells HPF (0-1); Macrocytosis SLIGHT = 6-15 cells HPF (0-5); Platelet Adequacy Comment Platelets Decreased; Polychromasia SLIGHT = 2-3 cells HPF (0-2); Smudge Cells 3.0 %
[2025-04-11] MEDS: Bisacodyl 10 MG SUPP PR SCH (08:17)
[2025-04-12 05:22] LABS: Anisocytosis SLIGHT = 6-15 cells HPF (0-5); Macrocytosis SLIGHT = 6-15 cells HPF (0-5); Platelet Adequacy Comment Platelets Normal; Polychromasia SLIGHT = 2-3 cells HPF (0-2)
[2025-04-12 05:29] LABS: #Basophils Less than 0.03 10x3/uL (0.0-0.2); #Eosinophils 0.62 10x3/uL (0.0-0.7); #Monocytes 0.44 10x3/uL (0.11-0.59); #Neutrophils 11.98 10x3/uL (1.40-6.50); %Basophils 0.1 % (0.0-1.0); %Eosinophils 4.5 % (0.0-10.0); %Lymphocytes 4.1 % (21.0-51.0); %Monocytes 3.2 % (0.0-10.0); %Neutrophils 87.7 % (42.0-75.0); Hematocrit 24.5 % (42.0-52.0); Hemoglobin 7.7 g/dL (14.0-18.0); Mean Corpuscular Hemoglobin 32.5 pg (27.0-31.0); Mean Corpuscular Volume 103.4 fL (78.0-98.0); Platelet Count 163 10x3/uL (130-400); Red Blood Cell (RBC) Count 2.37 mill/uL (4.70-6.10); White Blood Cell (WBC) Count 13.68 10x3/uL (4.8-10.8)
[2025-04-12 05:37] LABS: Anion Gap 9 mmol/L (10-20); BUN (Urea Nitrogen) 27 mg/dL (8.4-25.7); Calc. Creatinine Clearance 125 mL/min (70-130); Calcium 6.9 mg/dL (7.8-10.44); Carbon Dioxide 18 mmol/L (23-31); Chloride 112 mmol/L (98-107); Glucose 99 mg/dL (80-115); Potassium 3.0 mmol/L (3.5-5.1); Sodium 136 mmol/L (136-145)
[2025-04-12] MEDS: Potassium Bicarbonate/Cit Ac 20 MEQ TAB PER TUBE SCH (08:19)
[2025-04-12] MEDS: Calcium Gluc 4.6 MEQ/10 ML (100 MG/ML) SLOW IVP SCH (09:37)
[2025-04-12] MEDS: QUEtiapine 25 MG TAB PO SCH (20:53)
[2025-04-13 03:50] LABS: #Basophils Less than 0.03 10x3/uL (0.0-0.2); #Eosinophils 0.48 10x3/uL (0.0-0.7); #Monocytes 0.41 10x3/uL (0.11-0.59); #Neutrophils 8.51 10x3/uL (1.40-6.50); %Basophils 0.2 % (0.0-1.0); %Eosinophils 4.8 % (0.0-10.0); %Lymphocytes 6.0 % (21.0-51.0); %Monocytes 4.1 % (0.0-10.0); %Neutrophils 84.3 % (42.0-75.0); Hematocrit 22.3 % (42.0-52.0); Hemoglobin 7.0 g/dL (14.0-18.0); Mean Corpuscular Hemoglobin 31.7 pg (27.0-31.0); Mean Corpuscular Volume 100.9 fL (78.0-98.0); Platelet Count 154 10x3/uL (130-400); Red Blood Cell (RBC) Count 2.21 mill/uL (4.70-6.10); White Blood Cell (WBC) Count 10.08 10x3/uL (4.8-10.8)
[2025-04-13 03:58] LABS: Anion Gap 11 mmol/L (10-20); BUN (Urea Nitrogen) 19 mg/dL (8.4-25.7); Calc. Creatinine Clearance 144 mL/min (70-130); Calcium 6.8 mg/dL (7.8-10.44); Carbon Dioxide 17 mmol/L (23-31); Chloride 112 mmol/L (98-107); Glucose 99 mg/dL (80-115); Potassium 3.1 mmol/L (3.5-5.1); Sodium 137 mmol/L (136-145)
[2025-04-13 04:24] LABS: Macrocytosis SLIGHT = 6-15 cells HPF (0-5); Platelet Adequacy Comment Platelets Normal; Smudge Cells 10.0 %
[2025-04-13] MEDS: Potassium Phosphate 30 MMOL in Sodium Chloride 0.9% 250 ML 250 ML IVPB SCH (06:06)
[2025-04-13 11:03] LABS: Magnesium 1.5 mg/dL (1.6-2.6)
[2025-04-13] MEDS: Magnesium 2 GM/50 ML(in water) 2 GM in Premix 1 BAG IVPB SCH (15:43)
[2025-04-13] MEDS: Floranex 1 GM Packet PO SCH (15:57)
[2025-04-13] MEDS: Senokot S 8.6-50 MG TAB PO SCH (21:07)
[2025-04-14 04:30] LABS: Hematocrit 23.7 % (42.0-52.0); Hemoglobin 7.3 g/dL (14.0-18.0); Mean Corpuscular Hemoglobin 31.3 pg (27.0-31.0); Mean Corpuscular Volume 101.7 fL (78.0-98.0); Platelet Count 166 10x3/uL (130-400); Red Blood Cell (RBC) Count 2.33 mill/uL (4.70-6.10); White Blood Cell (WBC) Count 6.98 10x3/uL (4.8-10.8)
[2025-04-14 04:58] LABS: Anion Gap 12 mmol/L (10-20); BUN (Urea Nitrogen) 16 mg/dL (8.4-25.7); Calc. Creatinine Clearance 144 mL/min (70-130); Calcium 6.6 mg/dL (7.8-10.44); Carbon Dioxide 17 mmol/L (23-31); Chloride 113 mmol/L (98-107); Glucose 117 mg/dL (80-115); Magnesium 1.8 mg/dL (1.6-2.6); Potassium 3.0 mmol/L (3.5-5.1); Sodium 139 mmol/L (136-145)
[2025-04-14 05:07] LABS: Anisocytosis MARKED = >30 cells HPF (0-5); Macrocytosis SLIGHT = 6-15 cells HPF (0-5); Platelet Adequacy Comment Platelets Normal; Polychromasia SLIGHT = 2-3 cells HPF (0-2)
[2025-04-14 07:15] LABS: ALT (SGPT) 14 U/L (Less than 45); AST (SGOT) 29 U/L (11-34); Albumin 1.4 g/dL (3.1-4.5); Alkaline Phosphatase 62 U/L (40-110); Anion Gap 9 mmol/L (10-20); BUN (Urea Nitrogen) 16 mg/dL (8.4-25.7); Bilirubin, Total 0.8 mg/dL (0.3-1.2); Calc. Creatinine Clearance 150 mL/min (70-130); Calcium 6.6 mg/dL (7.8-10.44); Carbon Dioxide 17 mmol/L (23-31); Chloride 114 mmol/L (98-107); Globulin 3.0 g/dL (2.4-3.5); Glucose 116 mg/dL (80-115); Potassium 3.0 mmol/L (3.5-5.1); Sodium 137 mmol/L (136-145)
[2025-04-14] MEDS ORDERED: Floranex 1 GM Packet PO SCH (09:00)
[2025-04-14] MEDS: Magnesium 2 GM/50 ML(in water) 2 GM in Premix 1 BAG IVPB SCH (09:38)
[2025-04-14] MEDS: Potassium Phosphate 30 MMOL in Sodium Chloride 0.9% 250 ML 250 ML IVPB SCH (10:29)
[2025-04-14] MEDS: Furosemide 40 MG (4 mL) VIAL SLOW IVP SCH (11:05)
[2025-04-14] MEDS: Floranex 1 GM Packet PO SCH (11:05)
[2025-04-14] MEDS: Potassium Chloride 20 MEQ in Premix 1 BAG IVPB SCH (11:06)
[2025-04-14 18:21] LABS: Potassium 3.9 mmol/L (3.5-5.1)
[2025-04-15 04:28] LABS: Hematocrit 24.3 % (42.0-52.0); Hemoglobin 7.5 g/dL (14.0-18.0); Mean Corpuscular Hemoglobin 31.6 pg (27.0-31.0); Mean Corpuscular Volume 102.5 fL (78.0-98.0); Platelet Count 171 10x3/uL (130-400); Red Blood Cell (RBC) Count 2.37 mill/uL (4.70-6.10); White Blood Cell (WBC) Count 6.36 10x3/uL (4.8-10.8)
[2025-04-15 04:29] LABS: Anion Gap 9 mmol/L (10-20); BUN (Urea Nitrogen) 16 mg/dL (8.4-25.7); Calc. Creatinine Clearance 147 mL/min (70-130); Calcium 6.8 mg/dL (7.8-10.44); Carbon Dioxide 19 mmol/L (23-31); Chloride 115 mmol/L (98-107); Glucose 127 mg/dL (80-115); Magnesium 1.7 mg/dL (1.6-2.6); Potassium 3.5 mmol/L (3.5-5.1); Sodium 139 mmol/L (136-145)
[2025-04-15 05:22] LABS: Macrocytosis SLIGHT = 6-15 cells HPF (0-5); Platelet Adequacy Comment Platelets Normal; Smudge Cells 53.6 %
[2025-04-15] MEDS: CALCIUM GLUC 1 GM/NS 50 ML 1 GM in Premix 1 BAG IVPB SCH (06:20)
[2025-04-15] MEDS: Magnesium 2 GM/50 ML(in water) 2 GM in Premix 1 BAG IVPB SCH (07:53)
[2025-04-15] MEDS: Potassium Bicarbonate/Cit Ac 20 MEQ TAB PER TUBE SCH (08:00)
[2025-04-15] MEDS: QUEtiapine 25 MG TAB PO SCH ×2 (11:37→19:55)
[2025-04-15] MEDS: ALPRAZolam 0.25 MG TAB PO PRN (15:20)
[2025-04-16 04:16] LABS: Hematocrit 25.7 % (42.0-52.0); Hemoglobin 7.9 g/dL (14.0-18.0); Mean Corpuscular Hemoglobin 31.1 pg (27.0-31.0); Mean Corpuscular Volume 101.2 fL (78.0-98.0); Platelet Count 188 10x3/uL (130-400); Red Blood Cell (RBC) Count 2.54 mill/uL (4.70-6.10); White Blood Cell (WBC) Count 6.58 10x3/uL (4.8-10.8)
[2025-04-16 04:45] LABS: Anisocytosis SLIGHT = 6-15 cells HPF (0-5); Macrocytosis SLIGHT = 6-15 cells HPF (0-5); Platelet Adequacy Comment Platelets Normal; Polychromasia SLIGHT = 2-3 cells HPF (0-2); Smudge Cells 18.6 %
[2025-04-16 04:47] LABS: Anion Gap 11 mmol/L (10-20); BUN (Urea Nitrogen) 18 mg/dL (8.4-25.7); Calc. Creatinine Clearance 155 mL/min (70-130); Calcium 7.1 mg/dL (7.8-10.44); Carbon Dioxide 18 mmol/L (23-31); Chloride 113 mmol/L (98-107); Glucose 90 mg/dL (80-115); Potassium 3.7 mmol/L (3.5-5.1); Sodium 138 mmol/L (136-145)
[2025-04-17 05:32] LABS: Hematocrit 26.0 % (42.0-52.0); Hemoglobin 7.9 g/dL (14.0-18.0); Mean Corpuscular Hemoglobin 30.6 pg (27.0-31.0); Mean Corpuscular Volume 100.8 fL (78.0-98.0); Platelet Count 263 10x3/uL (130-400); Red Blood Cell (RBC) Count 2.58 mill/uL (4.70-6.10); White Blood Cell (WBC) Count 8.54 10x3/uL (4.8-10.8)
[2025-04-17 05:33] LABS: #Basophils Less than 0.03 10x3/uL (0.0-0.2); #Eosinophils 0.72 10x3/uL (0.0-0.7); #Monocytes 1.07 10x3/uL (0.11-0.59); #Neutrophils 5.24 10x3/uL (1.40-6.50); %Basophils 0.1 % (0.0-1.0); %Eosinophils 8.4 % (0.0-10.0); %Lymphocytes 17.1 % (21.0-51.0); %Monocytes 12.5 % (0.0-10.0); %Neutrophils 61.4 % (42.0-75.0)
[2025-04-17 05:42] LABS: Anion Gap 10 mmol/L (10-20); BUN (Urea Nitrogen) 19 mg/dL (8.4-25.7); Calc. Creatinine Clearance 141 mL/min (70-130); Calcium 7.3 mg/dL (7.8-10.44); Carbon Dioxide 21 mmol/L (23-31); Chloride 109 mmol/L (98-107); Glucose 93 mg/dL (80-115); Potassium 3.4 mmol/L (3.5-5.1); Sodium 137 mmol/L (136-145)
[2025-04-17 06:05] LABS: Macrocytosis SLIGHT = 6-15 cells HPF (0-5); Platelet Adequacy Comment Platelets Normal; Schistocytes SLIGHT = 2-5 cells HPF (0-1); Smudge Cells 28.7 %
[2025-04-17] MEDS: Sodium Ferric Gluconate 250 MG in Sodium Chloride 0.9% 250 ML 250 ML IVPB SCH (15:13)
[2025-04-17] MEDS: Enoxaparin 40 MG (0.4 mL) SYRINGE SC SCH (20:30)
[2025-04-18] MEDS: Albumin 25% 25 GM (100 mL) BOT IVPB SCH (06:25)
[2025-04-18 06:37] LABS: Anion Gap 9 mmol/L (10-20); BUN (Urea Nitrogen) 16 mg/dL (8.4-25.7); Calc. Creatinine Clearance 152 mL/min (70-130); Calcium 7.3 mg/dL (7.8-10.44); Carbon Dioxide 22 mmol/L (23-31); Chloride 110 mmol/L (98-107); Glucose 97 mg/dL (80-115); Potassium 3.4 mmol/L (3.5-5.1); Sodium 138 mmol/L (136-145)
[2025-04-18] MEDS: Multivit, Therapeutic 1 TAB PO SCH (09:53)
[2025-04-19 05:17] LABS: ALT (SGPT) 11 U/L (Less than 45); AST (SGOT) 27 U/L (11-34); Albumin 2.6 g/dL (3.1-4.5); Alkaline Phosphatase 72 U/L (40-110); Anion Gap 10 mmol/L (10-20); BUN (Urea Nitrogen) 14 mg/dL (8.4-25.7); Bilirubin, Total 0.7 mg/dL (0.3-1.2); Calc. Creatinine Clearance 187 mL/min (70-130); Calcium 7.7 mg/dL (7.8-10.44); Carbon Dioxide 21 mmol/L (23-31); Chloride 109 mmol/L (98-107); Globulin 2.7 g/dL (2.4-3.5); Glucose 105 mg/dL (80-115); Magnesium 1.3 mg/dL (1.6-2.6); Potassium 3.6 mmol/L (3.5-5.1); Sodium 136 mmol/L (136-145)
[2025-04-19 05:20] LABS: #Basophils Less than 0.03 10x3/uL (0.0-0.2); #Eosinophils 0.84 10x3/uL (0.0-0.7); #Monocytes 1.34 10x3/uL (0.11-0.59); #Neutrophils 6.78 10x3/uL (1.40-6.50); %Basophils 0.2 % (0.0-1.0); %Eosinophils 8.0 % (0.0-10.0); %Lymphocytes 13.4 % (21.0-51.0); %Monocytes 12.7 % (0.0-10.0); %Neutrophils 64.6 % (42.0-75.0)
[2025-04-19] MEDS: Magnesium Sulfate In Water 4 GM in Premix 1 BAG IVPB SCH (06:31)
[2025-04-19] MEDS: Pantoprazole 40 MG VIAL IVP SCH (08:28)
[2025-04-20] MEDS: Furosemide 40 MG (4 mL) VIAL SLOW IVP SCH (03:40)
[2025-04-20 04:07] LABS: #Basophils 0.05 10x3/uL (0.0-0.2); #Eosinophils 0.54 10x3/uL (0.0-0.7); #Monocytes 1.18 10x3/uL (0.11-0.59); #Neutrophils 5.79 10x3/uL (1.40-6.50); %Basophils 0.5 % (0.0-1.0); %Eosinophils 5.6 % (0.0-10.0); %Lymphocytes 19.4 % (21.0-51.0); %Monocytes 12.2 % (0.0-10.0); %Neutrophils 60.1 % (42.0-75.0); Hematocrit 25.8 % (42.0-52.0); Hemoglobin 8.4 g/dL (14.0-18.0); Mean Corpuscular Hemoglobin 31.3 pg (27.0-31.0); Mean Corpuscular Volume 96.3 fL (78.0-98.0); Platelet Count 313 10x3/uL (130-400); Red Blood Cell (RBC) Count 2.68 mill/uL (4.70-6.10); White Blood Cell (WBC) Count 9.64 10x3/uL (4.8-10.8)
[2025-04-20 04:30] LABS: ALT (SGPT) 10 U/L (Less than 45); AST (SGOT) 28 U/L (11-34); Albumin 2.1 g/dL (3.1-4.5); Alkaline Phosphatase 81 U/L (40-110); Anion Gap 13 mmol/L (10-20); BUN (Urea Nitrogen) 15 mg/dL (8.4-25.7); Bilirubin, Total 0.5 mg/dL (0.3-1.2); Calc. Creatinine Clearance 149 mL/min (70-130); Calcium 7.7 mg/dL (7.8-10.44); Carbon Dioxide 18 mmol/L (23-31); Chloride 109 mmol/L (98-107); Globulin 3.0 g/dL (2.4-3.5); Glucose 102 mg/dL (80-115); Magnesium 1.6 mg/dL (1.6-2.6); Potassium 3.6 mmol/L (3.5-5.1); Sodium 136 mmol/L (136-145)
[2025-04-20] MEDS: Magnesium 2 GM/50 ML(in water) 2 GM in Premix 1 BAG IVPB SCH (06:06)
[2025-04-21 06:21] LABS: Anion Gap 9 mmol/L (10-20); BUN (Urea Nitrogen) 19 mg/dL (8.4-25.7); Calc. Creatinine Clearance 136 mL/min (70-130); Calcium 8.0 mg/dL (7.8-10.44); Carbon Dioxide 22 mmol/L (23-31); Chloride 107 mmol/L (98-107); Glucose 90 mg/dL (80-115); Potassium 3.4 mmol/L (3.5-5.1)
[2025-04-21 06:27] LABS: Sodium 135 mmol/L (136-145)
[2025-04-21] MEDS: Potassium Bicarbonate/Cit Ac 20 MEQ TAB PER TUBE SCH (08:19)
[2025-04-22] MEDS: Albumin 25% 25 GM (100 mL) BOT IVPB SCH ×2 (11:25→17:50)
[2025-04-22] MEDS: Furosemide 40 MG (4 mL) VIAL IVP SCH (11:32)
[2025-04-22] MEDS: Potassium Bicarbonate/Cit Ac 20 MEQ TAB PER TUBE SCH (11:33)
[2025-04-22] MEDS ORDERED: Albumin 25% 25 GM (100 mL) BOT IVPB SCH (12:00)
[2025-04-22 14:26] LABS: Magnesium 1.4 mg/dL (1.6-2.6)
[2025-04-22] MEDS: Magnesium Sulfate In Water 4 GM in Premix 1 BAG IVPB SCH (16:14)
[2025-04-23 05:49] LABS: Magnesium 1.8 mg/dL (1.6-2.6)
[2025-04-23 07:50] LABS: #Basophils 0.07 10x3/uL (0.0-0.2); #Eosinophils 1.23 10x3/uL (0.0-0.7); #Monocytes 1.92 10x3/uL (0.11-0.59); #Neutrophils 9.15 10x3/uL (1.40-6.50); %Basophils 0.5 % (0.0-1.0); %Eosinophils 8.5 % (0.0-10.0); %Lymphocytes 13.1 % (21.0-51.0); %Monocytes 13.3 % (0.0-10.0); %Neutrophils 63.4 % (42.0-75.0); Hematocrit 23.7 % (42.0-52.0); Hemoglobin 7.3 g/dL (14.0-18.0); Mean Corpuscular Hemoglobin 31.3 pg (27.0-31.0); Mean Corpuscular Volume 101.7 fL (78.0-98.0); Platelet Count 382 10x3/uL (130-400); Red Blood Cell (RBC) Count 2.33 mill/uL (4.70-6.10); White Blood Cell (WBC) Count 14.44 10x3/uL (4.8-10.8)
[2025-04-23 08:19] LABS: Anion Gap 13 mmol/L (10-20); BUN (Urea Nitrogen) 15 mg/dL (8.4-25.7); Calc. Creatinine Clearance 148 mL/min (70-130); Calcium 8.4 mg/dL (7.8-10.44); Carbon Dioxide 25 mmol/L (23-31); Chloride 105 mmol/L (98-107); Glucose 113 mg/dL (80-115); Potassium 3.5 mmol/L (3.5-5.1); Sodium 139 mmol/L (136-145)
[2025-04-23] MEDS: Magnesium 2 GM/50 ML(in water) 2 GM in Premix 1 BAG IVPB SCH (11:19)
[2025-04-23] MEDS: Potassium Bicarbonate/Cit Ac 20 MEQ TAB PER TUBE SCH (11:20)
[2025-04-23] MEDS: Furosemide 40 MG (4 mL) VIAL SLOW IVP SCH (11:20)
[2025-04-24 04:28] LABS: #Basophils 0.10 10x3/uL (0.0-0.2); #Eosinophils 1.10 10x3/uL (0.0-0.7); #Monocytes 2.43 10x3/uL (0.11-0.59); #Neutrophils 13.77 10x3/uL (1.40-6.50); %Basophils 0.5 % (0.0-1.0); %Eosinophils 5.7 % (0.0-10.0); %Lymphocytes 9.4 % (21.0-51.0); %Monocytes 12.5 % (0.0-10.0); %Neutrophils 70.9 % (42.0-75.0); Hematocrit 26.9 % (42.0-52.0); Hemoglobin 8.3 g/dL (14.0-18.0); Mean Corpuscular Hemoglobin 31.1 pg (27.0-31.0); Mean Corpuscular Volume 100.7 fL (78.0-98.0); Platelet Count 410 10x3/uL (130-400); Red Blood Cell (RBC) Count 2.67 mill/uL (4.70-6.10); White Blood Cell (WBC) Count 19.41 10x3/uL (4.8-10.8)
[2025-04-24 04:55] LABS: Anion Gap 14 mmol/L (10-20); BUN (Urea Nitrogen) 22 mg/dL (8.4-25.7); Calc. Creatinine Clearance 154 mL/min (70-130); Calcium 8.5 mg/dL (7.8-10.44); Carbon Dioxide 29 mmol/L (23-31); Chloride 100 mmol/L (98-107); Glucose 124 mg/dL (80-115); Magnesium 1.7 mg/dL (1.6-2.6); Potassium 4.4 mmol/L (3.5-5.1); Sodium 139 mmol/L (136-145)
[2025-04-24] MEDS: Magnesium 2 GM/50 ML(in water) 2 GM in Premix 1 BAG IVPB SCH (08:53)
[2025-04-24] MEDS: Furosemide 40 MG (4 mL) VIAL SLOW IVP SCH ×2 (10:29→13:46)
[2025-04-25 03:07] LABS: #Basophils 0.08 10x3/uL (0.0-0.2); #Eosinophils 1.03 10x3/uL (0.0-0.7); #Monocytes 2.44 10x3/uL (0.11-0.59); #Neutrophils 10.20 10x3/uL (1.40-6.50); %Basophils 0.5 % (0.0-1.0); %Eosinophils 6.3 % (0.0-10.0); %Lymphocytes 14.6 % (21.0-51.0); %Monocytes 14.9 % (0.0-10.0); %Neutrophils 62.5 % (42.0-75.0); Hematocrit 23.0 % (42.0-52.0); Hemoglobin 7.1 g/dL (14.0-18.0); Mean Corpuscular Hemoglobin 30.9 pg (27.0-31.0); Mean Corpuscular Volume 100.0 fL (78.0-98.0); Platelet Count 361 10x3/uL (130-400); Red Blood Cell (RBC) Count 2.30 mill/uL (4.70-6.10); White Blood Cell (WBC) Count 16.33 10x3/uL (4.8-10.8)
[2025-04-25 04:03] LABS: Anion Gap 20 mmol/L (10-20); BUN (Urea Nitrogen) 25 mg/dL (8.4-25.7); Calc. Creatinine Clearance 139 mL/min (70-130); Calcium 8.5 mg/dL (7.8-10.44); Carbon Dioxide 25 mmol/L (23-31); Chloride 98 mmol/L (98-107); Glucose 107 mg/dL (80-115); Magnesium 1.8 mg/dL (1.6-2.6); Potassium 4.8 mmol/L (3.5-5.1); Sodium 138 mmol/L (136-145)
[2025-04-25] MEDS: Magnesium 2 GM/50 ML(in water) 2 GM in Premix 1 BAG IVPB SCH (08:15)
[2025-04-25] MEDS: Sodium Ferric Gluconate 250 MG in Sodium Chloride 0.9% 250 ML 250 ML IVPB SCH (14:43)
[2025-04-26 05:13] LABS: Magnesium 1.8 mg/dL (1.6-2.6)
[2025-04-26] MEDS: Magnesium 2 GM/50 ML(in water) 2 GM in Premix 1 BAG IVPB SCH (09:01)
[2025-04-26] MEDS: Scopolamine 1 mg/72 hour Patch TOP SCH (09:37)
[2025-04-26] MEDS ORDERED: Acetaminophen 325 MG TAB PER TUBE PRN (15:41)
[2025-04-26] MEDS: QUEtiapine 25 MG TAB PER TUBE SCH (20:32)
[2025-04-26] MEDS: Senokot S 8.6-50 MG TAB PER TUBE SCH (20:52)
[2025-04-27 03:43] LABS: #Basophils 0.13 10x3/uL (0.0-0.2); #Eosinophils 1.68 10x3/uL (0.0-0.7); #Monocytes 2.18 10x3/uL (0.11-0.59); #Neutrophils 11.46 10x3/uL (1.40-6.50); %Basophils 0.7 % (0.0-1.0); %Eosinophils 9.4 % (0.0-10.0); %Lymphocytes 12.7 % (21.0-51.0); %Monocytes 12.2 % (0.0-10.0); %Neutrophils 63.9 % (42.0-75.0); Hematocrit 25.4 % (42.0-52.0); Hemoglobin 7.8 g/dL (14.0-18.0); Mean Corpuscular Hemoglobin 31.0 pg (27.0-31.0); Mean Corpuscular Volume 100.8 fL (78.0-98.0); Platelet Count 408 10x3/uL (130-400); Red Blood Cell (RBC) Count 2.52 mill/uL (4.70-6.10); White Blood Cell (WBC) Count 17.92 10x3/uL (4.8-10.8)
[2025-04-27 03:52] LABS: Anion Gap 14 mmol/L (10-20); BUN (Urea Nitrogen) 22 mg/dL (8.4-25.7); Calc. Creatinine Clearance 138 mL/min (70-130); Calcium 8.8 mg/dL (7.8-10.44); Carbon Dioxide 31 mmol/L (23-31); Chloride 96 mmol/L (98-107); Glucose 111 mg/dL (80-115); Magnesium 1.8 mg/dL (1.6-2.6); Potassium 5.3 mmol/L (3.5-5.1); Sodium 136 mmol/L (136-145)
[2025-04-27] MEDS: Magnesium 2 GM/50 ML(in water) 2 GM in Premix 1 BAG IVPB SCH (08:17)
[2025-04-27] MEDS: Lansoprazole 30 MG/10 ML UDCUP PER TUBE SCH (08:17)
[2025-04-27] MEDS: Floranex 1 GM Packet PER TUBE SCH (08:18)
[2025-04-27] MEDS: Multivit, Therapeutic 1 TAB PER TUBE SCH (08:19)
[2025-04-27 08:56] LABS: #Basophils 0.19 10x3/uL (0.0-0.2); #Eosinophils 1.76 10x3/uL (0.0-0.7); #Monocytes 2.29 10x3/uL (0.11-0.59); #Neutrophils 13.02 10x3/uL (1.40-6.50); %Basophils 1.0 % (0.0-1.0); %Eosinophils 8.9 % (0.0-10.0); %Lymphocytes 11.2 % (21.0-51.0); %Monocytes 11.6 % (0.0-10.0); %Neutrophils 66.2 % (42.0-75.0); Hematocrit 28.4 % (42.0-52.0); Hemoglobin 8.8 g/dL (14.0-18.0); Mean Corpuscular Hemoglobin 31.1 pg (27.0-31.0); Mean Corpuscular Volume 100.4 fL (78.0-98.0); Platelet Count 446 10x3/uL (130-400); Red Blood Cell (RBC) Count 2.83 mill/uL (4.70-6.10); White Blood Cell (WBC) Count 19.68 10x3/uL (4.8-10.8)
[2025-04-27] MEDS: LOKELMA 10 GM PACKET PO SCH (11:54)
[2025-04-28 03:56] LABS: Anion Gap 17 mmol/L (10-20); BUN (Urea Nitrogen) 22 mg/dL (8.4-25.7); Calc. Creatinine Clearance 108 mL/min (70-130); Calcium 8.5 mg/dL (7.8-10.44); Carbon Dioxide 28 mmol/L (23-31); Chloride 95 mmol/L (98-107); Glucose 101 mg/dL (80-115); Magnesium 1.8 mg/dL (1.6-2.6); Potassium 4.8 mmol/L (3.5-5.1); Sodium 135 mmol/L (136-145)
[2025-04-28 07:36] LABS: #Basophils 0.17 10x3/uL (0.0-0.2); #Eosinophils 1.10 10x3/uL (0.0-0.7); #Monocytes 3.06 10x3/uL (0.11-0.59); #Neutrophils 13.21 10x3/uL (1.40-6.50); %Basophils 0.8 % (0.0-1.0); %Eosinophils 5.2 % (0.0-10.0); %Lymphocytes 16.8 % (21.0-51.0); %Monocytes 14.4 % (0.0-10.0); %Neutrophils 61.9 % (42.0-75.0); Hematocrit 25.4 % (42.0-52.0); Hemoglobin 7.9 g/dL (14.0-18.0); Mean Corpuscular Hemoglobin 30.7 pg (27.0-31.0); Mean Corpuscular Volume 98.8 fL (78.0-98.0); Platelet Count 450 10x3/uL (130-400); Red Blood Cell (RBC) Count 2.57 mill/uL (4.70-6.10); White Blood Cell (WBC) Count 21.32 10x3/uL (4.8-10.8)
[2025-04-28] MEDS: Magnesium 2 GM/50 ML(in water) 2 GM in Premix 1 BAG IVPB SCH (08:19)
[2025-04-28] MEDS: ALPRAZolam 0.25 MG TAB PER TUBE PRN (08:21)
[2025-04-28] MEDS: cefTRIAXone\\ROCEPHIN 1 GM in Sodium Chloride 0.9% 100 ML IVPB SCH (10:59)
[2025-04-29 04:25] LABS: Anion Gap 18 mmol/L (10-20); BUN (Urea Nitrogen) 24 mg/dL (8.4-25.7); Calc. Creatinine Clearance 79 mL/min (70-130); Calcium 9.2 mg/dL (7.8-10.44); Carbon Dioxide 29 mmol/L (23-31); Chloride 96 mmol/L (98-107); Glucose 120 mg/dL (80-115); Magnesium 2.2 mg/dL (1.6-2.6); Potassium 4.3 mmol/L (3.5-5.1); Sodium 139 mmol/L (136-145)
[2025-04-29 09:08] LABS: #Basophils 0.17 10x3/uL (0.0-0.2); #Eosinophils 0.89 10x3/uL (0.0-0.7); #Monocytes 2.89 10x3/uL (0.11-0.59); #Neutrophils 11.76 10x3/uL (1.40-6.50); %Basophils 0.9 % (0.0-1.0); %Eosinophils 4.6 % (0.0-10.0); %Lymphocytes 17.2 % (21.0-51.0); %Monocytes 15.0 % (0.0-10.0); %Neutrophils 61.3 % (42.0-75.0); Hematocrit 27.2 % (42.0-52.0); Hemoglobin 8.2 g/dL (14.0-18.0); Mean Corpuscular Hemoglobin 30.1 pg (27.0-31.0); Mean Corpuscular Volume 100.0 fL (78.0-98.0); Platelet Count 406 10x3/uL (130-400); Red Blood Cell (RBC) Count 2.72 mill/uL (4.70-6.10); White Blood Cell (WBC) Count 19.22 10x3/uL (4.8-10.8)
[2025-04-29 09:22] LABS: Anion Gap 18 mmol/L (10-20); BUN (Urea Nitrogen) 24 mg/dL (8.4-25.7); Calc. Creatinine Clearance 72 mL/min (70-130); Calcium 9.1 mg/dL (7.8-10.44); Carbon Dioxide 32 mmol/L (23-31); Chloride 96 mmol/L (98-107); Glucose 109 mg/dL (80-115); Potassium 4.7 mmol/L (3.5-5.1); Sodium 141 mmol/L (136-145)
[2025-04-30 03:26] LABS: #Basophils 0.17 10x3/uL (0.0-0.2); #Eosinophils 1.45 10x3/uL (0.0-0.7); #Monocytes 2.44 10x3/uL (0.11-0.59); #Neutrophils 10.16 10x3/uL (1.40-6.50); %Basophils 1.0 % (0.0-1.0); %Eosinophils 8.5 % (0.0-10.0); %Lymphocytes 15.8 % (21.0-51.0); %Monocytes 14.3 % (0.0-10.0); %Neutrophils 59.5 % (42.0-75.0); Hematocrit 26.7 % (42.0-52.0); Hemoglobin 8.2 g/dL (14.0-18.0); Mean Corpuscular Hemoglobin 30.9 pg (27.0-31.0); Mean Corpuscular Volume 100.8 fL (78.0-98.0); Platelet Count 396 10x3/uL (130-400); Red Blood Cell (RBC) Count 2.65 mill/uL (4.70-6.10); White Blood Cell (WBC) Count 17.07 10x3/uL (4.8-10.8)
[2025-04-30 03:45] LABS: Anion Gap 15 mmol/L (10-20); BUN (Urea Nitrogen) 25 mg/dL (8.4-25.7); Calc. Creatinine Clearance 74 mL/min (70-130); Calcium 9.0 mg/dL (7.8-10.44); Carbon Dioxide 31 mmol/L (23-31); Chloride 98 mmol/L (98-107); Glucose 113 mg/dL (80-115); Potassium 4.1 mmol/L (3.5-5.1); Sodium 140 mmol/L (136-145)
[2025-04-30] MEDS: Furosemide 40 MG (4 mL) VIAL SLOW IVP SCH (08:30)
[2025-04-30 13:58] VITALS: BP 123/79
[2025-05-01 05:47] VITALS: BMI 19.3
[2025-05-01] MEDS: Furosemide 40 MG (4 mL) VIAL SLOW IVP SCH (09:08)
[2025-05-01 13:19] VITALS: BMI 19.3
[2025-05-02 15:12] VITALS: TEMP 97.8
== END 2025-05-02 15:15 | disposition hospice, home (50) | DRG 4 ==
LOC: ERS 08:56 → CCU 12:17 → IMCU/EMU 03-23 07:33 → CCU 04-01 11:11 → IMCU/EMU 04-30 18:39
PROVIDERS: ADMIT Hospitalist; ATTEND Hospitalist
PROC: 5A1955Z Respiratory Ventilation, Greater than 96 Consecutive Hours (ICD-10-PCS; 2025-03-17)
PROC: 3E03329 Introduction of Other Anti-infective into Peripheral Vein, Percutaneous Approach (ICD-10-PCS; 2025-03-17)
PROC: 30233J1 Transfusion of Nonautologous Serum Albumin into Peripheral Vein, Percutaneous Approach (ICD-10-PCS; 2025-03-17)
PROC: 3E033XZ Introduction of Vasopressor into Peripheral Vein, Percutaneous Approach (ICD-10-PCS; 2025-03-17)
PROC: 0D738ZZ Dilation of Lower Esophagus, Via Natural or Artificial Opening Endoscopic (ICD-10-PCS; 2025-03-21)
PROC: 30233N1 Transfusion of Nonautologous Red Blood Cells into Peripheral Vein, Percutaneous Approach (ICD-10-PCS; 2025-03-27)
PROC: 4A133R1 Monitoring of Arterial Saturation, Peripheral, Percutaneous Approach (ICD-10-PCS; 2025-03-27)
PROC: 5A09457 Assistance with Respiratory Ventilation, 24-96 Consecutive Hours, Continuous Positive Airway Pressure (ICD-10-PCS; 2025-03-27)
PROC: 0BH17EZ Insertion of Endotracheal Airway into Trachea, Via Natural or Artificial Opening (ICD-10-PCS; 2025-04-01)
PROC: 0B113F4 Bypass Trachea to Cutaneous with Tracheostomy Device, Percutaneous Approach (ICD-10-PCS; principal; 2025-04-02)
PROC: 0DH64UZ Insertion of Feeding Device into Stomach, Percutaneous Endoscopic Approach (ICD-10-PCS; 2025-04-02)
PROC: 3E0G76Z Introduction of Nutritional Substance into Upper GI, Via Natural or Artificial Opening (ICD-10-PCS; 2025-04-02)
DX: J69.0 Pneumonitis due to inhalation of food and vomit (principal); J96.01 Acute respiratory failure with hypoxia; G93.41 Metabolic encephalopathy; R53.2 Functional quadriplegia; E43 Unspecified severe protein-calorie malnutrition; I61.1 Nontraumatic intracerebral hemorrhage in hemisphere, cortical; I63.9 Cerebral infarction, unspecified; D61.818 Other pancytopenia; Z68.1 Body mass index [BMI] 19.9 or less, adult; J90 Pleural effusion, not elsewhere classified; R18.8 Other ascites; K91.89 Other postprocedural complications and disorders of digestive system; K56.7 Ileus, unspecified; E87.21 Acute metabolic acidosis; K74.60 Unspecified cirrhosis of liver; Z66 Do not resuscitate; Z51.5 Encounter for palliative care; F10.129 Alcohol abuse with intoxication, unspecified; J45.909 Unspecified asthma, uncomplicated; J18.9 Pneumonia, unspecified organism; K22.2 Esophageal obstruction; I10 Essential (primary) hypertension; E83.42 Hypomagnesemia; F10.10 Alcohol abuse, uncomplicated; E87.8 Other disorders of electrolyte and fluid balance, not elsewhere classified; R13.14 Dysphagia, pharyngoesophageal phase; D64.9 Anemia, unspecified; R62.7 Adult failure to thrive; R16.0 Hepatomegaly, not elsewhere classified; K76.0 Fatty (change of) liver, not elsewhere classified; J38.3 Other diseases of vocal cords; R29.711 NIHSS score 11; R13.12 Dysphagia, oropharyngeal phase; G89.29 Other chronic pain; Z79.899 Other long term (current) drug therapy; Z74.01 Bed confinement status
CPT/HCPCS: 36415; 36416; 36430; 36600; 70450; 71045; 71275; 74018; 74177; 76705; 80048; 80053; 80076; 80202; 80307; 81001; 82010; 82140; 82805; 83036; 83605; 83690; 83735; 84100; 84145; 84484; 85025; 85060; 85610; 85730; 86850; 86900; 86901; 87040; 87081; 87149; 93005; 93010; 94002; 94003; 94640; 94660; 94760; 96365; 96367; 96375; 97139; A4217; A7521; B4087; C1726; C1776; J0169; J0360; J0612; J0613; J0665; J0692; J0694; J0696; J1650; J1940; J2060; J2250; J2470; J2543; J2704; J2765; J2916; J2919; J3373; J3411; J3475; J3480; J3490; J7030; J7042; J7050; J7120; P9016; P9040; P9047; Q9967